=== PATIENT | female | born 2000 | race Caucasian/White ===

== ENCOUNTER 2022-05-12 21:56 | Emergency (ER) | payer MEDICAID, SELFPAY ==
--- NOTE | ~2022-05-12 | XR_ITS ---
EXAMINATION: XR CHEST CLINICAL INFORMATION: Shortness of breath COMPARISON: Chest x-ray 07/28/2017 TECHNIQUE: Frontal view of the chest was obtained. FINDINGS: The lungs are clear. No airspace consolidation, pleural effusion, or pneumothorax. The cardiomediastinal silhouette is within normal limits. No acute osseous injury. XR/XR chest 1V IMPRESSION: No acute pulmonary process.
[2022-05-12 22:00] VITALS: BP 129/78; PULSE 135; RESP 24; TEMP 36.5; O2SAT 100; BMI 51.5
[2022-05-12 23:25] LABS: COVID-19 Test Negative (Negative); IDNOW Serial# 16C4AD1C; Influenza A Negative (Negative); Influenza B2 Negative (Negative)
--- NOTE | 2022-05-13 00:05 | ED.GENADULT ---
HPI - General Adult General Chief complaint: Dyspnea Stated complaint: diff breathing Time Seen by Provider: 05/13/22 00:05 Source: patient Mode of arrival: ambulatory History of Present Illness HPI narrative: Patient is a 22 year old female presenting to the emergency department today with increased SOB. Patient states that over the last few days, she has had increased SOB. Patient states that she does have a history of asthma and this does feel like an exacerbation. Patient denies any dizziness, lightheadedness, abdominal pain, nausea, vomiting, fever, chills, blurry vision, double vision, loss of vision, chest pain, back pain, night sweats, pain with urination, increased urinary frequency, increased urinary urgency, blood in her urine or stool, syncope or a near syncopal episode, recent trauma or falls, bowel incontinence, bladder incontinence, bowel retention, bladder retention, or any other complaints at this time. Onset (ago): day(s) (2) Severity: mild Severity scale (1-10): 3 Relieving factors: none Exacerbating factors: none Associated symptoms: shortness of breath Treatments prior to arrival: none Related Data Previous Rx's Medication Instructions Recorded prednisone 20 mg tablet 20 mg PO DAILY 12 days #26 tabs 05/13/22 Allergies Allergy/AdvReac Type Severity Reaction Status Date / Time shellfish derived Allergy Unknown UNK Unverified 06/16/20 17:01 [SHELLFISH DERIVED] shellfish Allergy Unknown Uncoded 08/12/19 00:00 Review of Systems Constitutional: Constitutional: Reports no additional constitutional complaints, Denies chills, Denies fever(s) and Denies night sweats Eyes: Eyes: Reports no additional eye complaints, Denies blurry vision, Denies change in vision, Denies diplopia, Denies eye discharge, Denies loss of vision and Denies eye pain ENT: Denies dizziness Cardiovascular: Cardiovascular: Reports no additional cardiovascular complaints, Denies chest pain, Denies lightheadedness, Denies Loss of Consciousness and Reports dyspnea Respiratory: Respiratory: Reports no additional respiratory complaints and Reports dyspnea Gastrointestinal: Gastrointestinal: Reports no additional gastrointestinal complaints, Denies abdominal pain, Denies melena, Denies hematochezia, Denies change in bowel habits and Denies change in stool character Genitourinary: Genitourinary: Denies hematuria, Denies urinary frequency, Denies dysuria, Denies urinary incontinence, Denies urinary hesitancy and Denies urinary urgency Musculoskeletal: Musculoskeletal: Reports no additional musculoskeletal complaints, Denies numbness and Denies tingling Neurologic: Denies dizziness, Denies loss of vision, Denies numbness and Denies tingling Psychiatric: Psychiatric: Reports no additional psychiatric complaints Endocrine: Endocrine: Reports no additional endocrine complaints Hematologic/Lymphatic: Hematologic/Lymphatic: Reports no additional hematologic/lymphatic complaints Allergic/Immunologic: Allergic/Immunologic: Reports no additional allergic/immunologic complaints [facility] Past Medical History Attestation statement: The following information was validated with the patient. Source: old records reviewed Social History Social History Advance Directives: No Advance Directives Information Provided: Yes Physical Exam ED Vital Signs: Vital Signs - 24 hr 05/12/22 22:00 05/13/22 01:11 Temperature 97.7 F Pulse Rate 135 H 135 H Respiratory Rate 24 H 16 Blood Pressure 129/78 Pulse Oximetry 100 Oxygen Delivery Method Room Air BMI result Body Mass Index 51.5 Const General: cooperative, no acute distress, alert and awake Nutritional Appearance: well nourished Orientation/consciousness: patient oriented x3 Limitations: no limitations HENMT Head: Yes normal to inspection and Yes atraumatic Ears: hearing grossly normal bilaterally and external ears normal General nose exam: Normal external nose present, no nasal discharge noted and no epistaxis Face and sinus: Yes normal facial exam, No abrasion and No laceration Mouth: Normal oral and palatal mucosa present, no drooling and no muffled voice Eyes General: appearance normal, both eyes and all related structures Periorbital: periorbital findings normal Eyelids: Yes eyelids normal Conjunctivae: conjunctivae normal Pupils: Equal, round and reactive pupils present EOM: EOMs intact bilaterally Neck Neck: Yes normal visual inspection, Yes full ROM and Yes no lymphadenopathy Chest Chest palpation & inspection: normal inspection of the chest Resp Effort & Inspection: normal respiratory effort and able to speak in complete sentences Auscultation: wheezes throughout Cardio Rate: tachycardic Rhythm: regular rhythm GI Inspection: Yes normal to inspection Neuro General: patient oriented x3 and moves all extremities Cranial nerves: Yes Equal, round and reactive pupils present Cognition (Neuro): normal cognition Motor exam (neuro): 5/5 motor strength present throughout Sensory Exam: Normal double simultaneous stimulation for sensation Coordination: [id number] test normal Extrem General: Yes normal to inspection, Yes full ROM and Yes capillary refill normal Psych Appearance: grossly normal Mental Status: mental status grossly normal Affect: normal affect Attitude: cooperative Thought process: Normal thought process present Thought content: Normal thought content present Insight: Good insight present (Psych) Medical Decision Making MDM Narrative Medical decision making narrative: Patient is a 22 year old female presenting to the emergency department today with an asthma exacerbation. Patient's physical exam showed diffuse wheezing and tachycardia but it was otherwise unremarkable. Patient's rapid COVID-19 test was negative. Patient's chest x-ray showed no acute process. Patient is likely tachycardic secondary to her increased albuterol inhaler use at home. I explained my physical exam findings as well as all test results to the patient. I answered all questions asked by the patient. Patient received a duoneb treatment and IM Solu-Medrol which she stated helped her symptoms significantly. I stressed the importance of the patient taking her medication as prescribed. I stressed the importance of the patient following up with her primary care provider. I stressed the importance of the patient returning to the emergency department immediately if her symptoms were to worsen or if she were to develop any dizziness, shortness of breath, difficulty breathing, chest pain, blurry vision, loss of vision, nausea, vomiting, abdominal pain, fever, chills, back pain, or any other complaints. Patient verbalized agreement and understanding with this treatment plan and discharge. Differential Diagnosis Differential Diagnosis: asthma exacerbation Medical Records Medical records reviewed: Yes I reviewed the patient's medical records. Lab Data Lab results reviewed: Yes I reviewed the patient's lab results. Labs: Lab Results 05/12/22 05/12/22 Range/Units 23:01 23:01 COVID-19 (JAYJAY) Negative (Negative) COVID-19 Clin Com See Note Influenza Type A (REBECA) Negative (Negative) Influenza Type B (REBECA) Negative (Negative) Influenza A & B Note See Note Imaging Data Chest x-ray: Attestation: I personally reviewed and interpreted this imaging study as follows: My impression: No acute process. Radiologist's impression: EXAMINATION: XR CHEST CLINICAL INFORMATION: Shortness of breath COMPARISON: Chest x-ray 07/28/2017 TECHNIQUE: Frontal view of the chest was obtained. FINDINGS: The lungs are clear. No airspace consolidation, pleural effusion, or pneumothorax. The cardiomediastinal silhouette is within normal limits. No acute osseous injury. XR/XR chest 1V IMPRESSION: No acute pulmonary process. ? Dictated By: Ronny Cleary Signed By: Electronically signed by Ronny?Evin 05/12/22 [id number] Discharge Plan Discharge Clinical Impression: Asthma with exacerbation Patient Disposition: Home, Self-Care Instructions: Asthma (ED) Additional Instructions: Follow up with your primary care provider. Return to the emergency department immediately if your symptoms worsen or if you develop any dizziness, shortness of breath, difficulty breathing, chest pain, blurry vision, loss of vision, nausea, vomiting, abdominal pain, fever, chills, back pain, or any other complaints. Prescriptions: New prednisone 20 mg tablet 20 mg PO DAILY 12 Days Qty: 26 0RF Rx Instructions: Take 3 tablets for 5 days THEN; Take 2 tablets for 4 days THEN; Take 1 tablet for 3 days Referrals: Trang Draper NP [Primary Care Provider] - Print Language: [place]
[2022-05-13] MEDS: Albuterol/Iprat 2.5/0.5MG 3 ML AMPUL.NEB INHALE (01:09)
[2022-05-13 01:11] VITALS: PULSE 135; RESP 16; O2SAT 100
[2022-05-13] MEDS: methylPREDNISolone Sod Succ 125 MG/2 ML VIAL 60 MG IM (01:11)
== END 2022-05-13 02:30 | disposition home or self-care (01) ==
PROVIDERS: Emergency Provider Emergency Medicine; PCP Nurse Practitioner Adult Health
DX: J45.901 Unspecified asthma with (acute) exacerbation (principal); R06.02 Shortness of breath; Z20.822 Contact with and (suspected) exposure to COVID-19
CPT/HCPCS: 71045; 87502; 87635; 94640; 96372; 99283; 99284; J2930

== ENCOUNTER 2022-10-05 11:23 | Emergency (ER) | payer OTHER, SELFPAY ==
--- NOTE | ~2022-10-05 | US_ITS ---
EXAMINATION: ULTRASOUND OF THE PELVIS CLINICAL INFORMATION: Vaginal bleeding. COMPARISON: None. TECHNIQUE: Transabdominal pelvic ultrasound. FINDINGS: The uterus is normal in size and appearance, measuring 5.9 x 3 x 4.1 cm longitudinally, anteroposteriorly and transversely. The endometrial stripe thickness is normal, measuring 0.9 cm in thickness. No focal myometrial mass is seen. The ovaries bilaterally are visualized and appear normal, with the right ovary measuring 2.8 x 2 x 1.9 cm and the left ovary measuring 2 x 1.4 x 1.1 cm. No adnexal mass or free fluid collection seen. US/US pelvic and transvaginal IMPRESSION: Normal pelvic ultrasound.
[2022-10-05 11:29] VITALS: BP 109/103; PULSE 115; RESP 20; TEMP 36.1; O2SAT 98; BMI 47.1
--- NOTE | 2022-10-05 11:29 | ED_ITS ---
HPI - Female Genitourinary General Chief complaint: Vaginal Bleeding Stated complaint: heavy vaginal bleeding Time Seen by Provider: 10/05/22 12:04 Related Data Previous Rx's Medication Instructions Recorded medroxyprogesterone 10 mg tablet 10 mg PO DAILY #30 tabs 10/05/22 (Provera) Allergies Allergy/AdvReac Type Severity Reaction Status Date / Time shellfish derived Allergy Unknown UNK Verified 10/08/22 11:08 [SHELLFISH DERIVED] walnut Allergy Itching Verified 10/08/22 11:08 peanut AdvReac Itching Verified 10/08/22 11:08 shellfish Allergy Unknown Unknown Uncoded 10/05/22 13:26 PMFSH Past Medical History Medical History Asthma Jose Luis's thyroiditis Surgical History Hx of tonsillectomy Social History Social History Patient Tobacco Use Status: Never used Tobacco Physical Exam Vital Signs: Vital Signs: Last Vital Signs Temp 96.9 F 10/05/22 11:29 Pulse 97 10/05/22 14:25 Resp 16 10/05/22 14:25 BP 122/63 10/05/22 14:25 Pulse Ox 99 10/05/22 14:25 O2 Del Method 10/05/22 14:25 BMI result Body Mass Index 47.1 Course Course Course Narrative: This is an RME: Additional HPI, ROS, PE not included below will be deferred to primary provider. Reports menstrual bleeding for 3 months constantly, 1 week ago she went to urgent care where she was given a prescription for oral contraceptive. Her bleeding did subside for 2 days after she began taking it, However, after 3 days she developed nausea and leg pain, stop taking the contraceptive, and the bleeding returned. States she is using overnight pads changing them every hour. Reports that this is abnormal for her, in the past she has always had issues with not having her menstrual period for prolonged periods. Reports associated suprapubic cramping, dizziness, lightheadedness. Denies nausea, vomiting, back pain, flank pain, dysuria. She states that she spoke to a nurse at [facility], who advised her to come to the emergency department due to her bleeding. She has not yet been seen by a men's basketball coach provider, as she has been unable to make a new patient appointment. Plan: Labs, urinalysis, hcg Medications Administered Discontinued Medications Generic Name Dose Route Start Last Admin Trade Name Freq PRN Reason Stop Dose Admin Sodium Chloride 1,000 mls @ 999 mls/hr 10/05/22 12:15 10/05/22 14:48 Ns IVCONT 10/05/22 13:15 Infused .Q1H1M KWAME Infusion Medical Decision Making Lab Data 10/05/22 12:14 10/05/22 12:14 Labs: Lab Results 10/05/22 10/05/22 10/05/22 Range/Units 12:14 12:14 12:14 WBC 9.9 (4.8-10.8) X10*3/uL RBC 4.97 (4.20-5.50) X10*6/uL Hgb 11.6 L (12.0-16.0) g/dl Hct 37.6 (37.0-47.0) % MCV 75.7 L (80.0-98.0) fL MCH 23.3 L (27.0-33.0) pg MCHC 30.9 L (31.0-35.0) g/dl RDW 14.1 (11.0-16.0) % Plt Count 300 (160-400) X10*3/uL MPV 12.9 H (9.4-12.3) fL Immature Gran % (Auto) 0.3 (0.0-0.4) % Neut % (Auto) 69.9 (45-73) % Lymph % (Auto) 20.5 (20-40) % [place] % (Auto) 7.7 (2-11) % Eos % (Auto) 1.1 (0-4) % Baso % (Auto) 0.5 (0-2) % Lymph # (Auto) 2.0 (1.2-4.9) X10*3/uL [place] # (Auto) 0.8 (0.1-1.2) X10*3/uL Eos # (Auto) 0.1 (0.0-0.4) X10*3/uL Baso # (Auto) 0.1 (0.0-0.2) X10*3/uL Abs Immat Gran (auto) 0.03 (0.00-0.03) X10*3/uL Absolute Neuts (auto) 6.9 (2.0-8.3) x10*3/uL Absolute Nucleated RBC 0.000 (0.0-0.012) X10*3/uL Nucleated RBC % (auto) 0.0 (0.0-0.2) /100WBC Sodium 142 (135-145) mmol/L Potassium 4.1 (3.3-5.1) mmol/L Chloride 108 (96-108) mmol/L Carbon Dioxide 25 (22-29) mmol/L Anion Gap 13 (12-20) BUN 13 (9-16) mg/dL Creatinine 0.79 (0.5-1.4) mg/dL Estim Creat Clear Calc 158.7 Estimated GFR > 60 Random Glucose 105 (60-115) mg/dL Calcium 9.9 (8.4-10.2) mg/dL Total Bilirubin 0.5 (0.0-1.0) mg/dL AST 16 (5-31) U/L ALT 24 (0-31) U/L Alkaline Phosphatase 87 (39-117) U/L Total Protein 7.6 (6.5-8.0) g/dL Albumin 4.2 (3.5-5.0) g/dL Beta HCG, Quant < 2 Cancelled mIU/mL Urine Color Urine Appearance Urine pH (5.0-9.0) Ur Specific [place] (1.005-1.025) Urine Protein (Neg-Trace) mg/dL Urine Glucose (UA) (Negative) mg/dL Urine Ketones (Negative) mg/dL Urine Blood (Negative) Urine Nitrite (Negative) Ur Leukocyte Esterase (Negative) Urine RBC (0-2) /HPF Urine WBC (0-5) /HPF Ur Squamous Epith Cells (0-2) /HPF Urine Bacteria (None Seen) Hyaline Casts (0-2) /LPF Urine Test (NEGATIVE) Blood Type Antibody Screen 10/05/22 10/05/22 10/05/22 Range/Units 12:15 12:15 12:31 WBC (4.8-10.8) X10*3/uL RBC (4.20-5.50) X10*6/uL Hgb (12.0-16.0) g/dl Hct (37.0-47.0) % MCV (80.0-98.0) fL MCH (27.0-33.0) pg MCHC (31.0-35.0) g/dl RDW (11.0-16.0) % Plt Count (160-400) X10*3/uL MPV (9.4-12.3) fL Immature Gran % (Auto) (0.0-0.4) % Neut % (Auto) (45-73) % Lymph % (Auto) (20-40) % [place] % (Auto) (2-11) % Eos % (Auto) (0-4) % Baso % (Auto) (0-2) % Lymph # (Auto) (1.2-4.9) X10*3/uL [place] # (Auto) (0.1-1.2) X10*3/uL Eos # (Auto) (0.0-0.4) X10*3/uL Baso # (Auto) (0.0-0.2) X10*3/uL Abs Immat Gran (auto) (0.00-0.03) X10*3/uL Absolute Neuts (auto) (2.0-8.3) x10*3/uL Absolute Nucleated RBC (0.0-0.012) X10*3/uL Nucleated RBC % (auto) (0.0-0.2) /100WBC Sodium (135-145) mmol/L Potassium (3.3-5.1) mmol/L Chloride (96-108) mmol/L Carbon Dioxide (22-29) mmol/L Anion Gap (12-20) BUN (9-16) mg/dL Creatinine (0.5-1.4) mg/dL Estim Creat Clear Calc Estimated GFR Random Glucose (60-115) mg/dL Calcium (8.4-10.2) mg/dL Total Bilirubin (0.0-1.0) mg/dL AST (5-31) U/L ALT (0-31) U/L Alkaline Phosphatase (39-117) U/L Total Protein (6.5-8.0) g/dL Albumin (3.5-5.0) g/dL Beta HCG, Quant mIU/mL Urine Color RED Urine Appearance Cloudy Urine pH 6.0 (5.0-9.0) Ur Specific [place] >= 1.030 H (1.005-1.025) Urine Protein 100 (2+) H (Neg-Trace) mg/dL Urine Glucose (UA) Negative (Negative) mg/dL Urine Ketones Negative (Negative) mg/dL Urine Blood Large (3+) H (Negative) Urine Nitrite Negative (Negative) Ur Leukocyte Esterase Negative (Negative) Urine RBC >20 H (0-2) /HPF Urine WBC 0-5 (0-5) /HPF Ur Squamous Epith Cells 0-2 (0-2) /HPF Urine Bacteria None Seen (None Seen) Hyaline Casts 0-2 (0-2) /LPF Urine Test NEGATIVE (NEGATIVE) Blood Type O Positive Antibody Screen NEGATIVE Discharge Plan Discharge Clinical Impression: Vaginal bleeding Patient Disposition: Home, Self-Care Instructions: Dysfunctional Uterine Bleeding (ED) Additional Instructions: dr Elise will see your Saturday or Saturday please call the office Prescriptions: New medroxyprogesterone [Provera] 10 mg tablet 10 mg PO DAILY Qty: 30 0RF Referrals: Blaise Elise MD [Physician] - 3 days Interventions: ED Discharge Assessment Last Done: 10/05/22 14:49 Discharge Date/Time: 10/05/22 14:49
--- NOTE | 2022-10-05 12:09 | ED.FEMALEGU ---
HPI - Female Genitourinary General Chief complaint: Vaginal Bleeding Stated complaint: heavy vaginal bleeding Time Seen by Provider: 10/05/22 12:04 Source: patient Mode of arrival: ambulatory Limitations: no limitations History of Present Illness HPI Narrative: 22 years old of female presented to the ED with a chief complaint of heavy vaginal bleeding ongoing for at least a month she was seen at the urgent care she tried for a couple of day better control pills which she discontinued for side effect. Denies any vomiting any diarrhea any fever any abdominal pain MD elicited complaint: other (vaginal bleeding) Severity: moderate Female Urogenital Radiation: Non-Radiating Quality of pain: cramping Exacerbating factors: none Relieving factors: none Related Data Previous Rx's Medication Instructions Recorded prednisone 20 mg tablet 20 mg PO DAILY 12 days #26 tabs 05/13/22 medroxyprogesterone 10 mg tablet 10 mg PO DAILY #30 tabs 10/05/22 (Provera) Allergies Allergy/AdvReac Type Severity Reaction Status Date / Time shellfish derived Allergy Unknown UNK Unverified 06/16/20 17:01 [SHELLFISH DERIVED] walnut Allergy Itching Verified 10/05/22 13:26 peanut AdvReac Itching Verified 10/05/22 13:26 shellfish Allergy Unknown Unknown Uncoded 10/05/22 13:26 Review of Systems Constitutional: Constitutional: Reports no additional constitutional complaints ENT: Reports system reviewed and no additional complaints, except as documented Cardiovascular: Cardiovascular: Reports no additional cardiovascular complaints Respiratory: Respiratory: Reports no additional respiratory complaints [facility] Past Medical History [facility] Narrative: none Physical Exam Vital Signs: Vital Signs: Last Vital Signs Temp 96.9 F 10/05/22 11:29 Pulse 97 10/05/22 14:25 Resp 16 10/05/22 14:25 BP 122/63 10/05/22 14:25 Pulse Ox 99 10/05/22 14:25 O2 Del Method 10/05/22 14:25 BMI result Body Mass Index 47.1 Const: General: cooperative Nutritional Appearance: average body habitus Orientation/consciousness: patient oriented x3 HEENT: Head: Yes normal to inspection General nose exam: Normal external nose present Face and sinus: Yes normal facial exam Mouth: Normal oral and palatal mucosa present Throat: Yes posterior oropharynx normal Neck: Neck: Yes normal visual inspection and Yes full ROM Chest: Chest palpation & inspection: normal inspection of the chest Resp: Effort & Inspection: normal respiratory effort Cardio: Jugular venous distension: no JVD Rate: regular rate Rhythm: regular rhythm GI: Inspection: Yes normal to inspection Palpation (GI): Soft to palpation, not firm, nontender and no guarding Auscultation: normal bowel sounds : Other: Pelvic exam was done patient has had minimal bleeding General: Yes Bimanual renal exam normal bilaterally External Female Exam: normal external appearance Speculum Exam - Vagina: normal appearance of the vagina Speculum Exam - Cervix: normal appearance of the cervix Neuro: General: patient oriented x3 Course Reevaluation(s) Reevaluation #1: I spoke with the OBGYN(Dr Elise)will see the patient on Saturday he recommended also Provera 10 mg daily 30 tablets Medications Administered Discontinued Medications Generic Name Dose Route Start Last Admin Trade Name Freq PRN Reason Stop Dose Admin Sodium Chloride 1,000 mls @ 999 mls/hr 10/05/22 12:15 10/05/22 14:48 Ns IVCONT 10/05/22 13:15 Infused .Q1H1M KWAME Infusion Medical Decision Making Medical Decision Making [facility] Narrative: Patient presented with heavy vaginal bleeding will do a test check the H&H Differential Diagnosis Differential diagnosis included ectopic dysfunctional uterine bleeding Consult Healthcare Provider Management of the patient was discussed with: Data Warehousing Engineer I discussed the case with due to these are be OBGYN he recommend discharge on p.o. Provera and he will see the patient on Saturday Lab Data [facility] Lab Attestation statement: I reviewed the patient's lab results. 10/05/22 12:14 10/05/22 12:14 Labs: Lab Results 10/05/22 10/05/22 10/05/22 Range/Units 12:14 12:14 12:14 WBC 9.9 (4.8-10.8) X10*3/uL RBC 4.97 (4.20-5.50) X10*6/uL Hgb 11.6 L (12.0-16.0) g/dl Hct 37.6 (37.0-47.0) % MCV 75.7 L (80.0-98.0) fL MCH 23.3 L (27.0-33.0) pg MCHC 30.9 L (31.0-35.0) g/dl RDW 14.1 (11.0-16.0) % Plt Count 300 (160-400) X10*3/uL MPV 12.9 H (9.4-12.3) fL Immature Gran % (Auto) 0.3 (0.0-0.4) % Neut % (Auto) 69.9 (45-73) % Lymph % (Auto) 20.5 (20-40) % [place] % (Auto) 7.7 (2-11) % Eos % (Auto) 1.1 (0-4) % Baso % (Auto) 0.5 (0-2) % Lymph # (Auto) 2.0 (1.2-4.9) X10*3/uL [place] # (Auto) 0.8 (0.1-1.2) X10*3/uL Eos # (Auto) 0.1 (0.0-0.4) X10*3/uL Baso # (Auto) 0.1 (0.0-0.2) X10*3/uL Abs Immat Gran (auto) 0.03 (0.00-0.03) X10*3/uL Absolute Neuts (auto) 6.9 (2.0-8.3) x10*3/uL Absolute Nucleated RBC 0.000 (0.0-0.012) X10*3/uL Nucleated RBC % (auto) 0.0 (0.0-0.2) /100WBC Sodium 142 (135-145) mmol/L Potassium 4.1 (3.3-5.1) mmol/L Chloride 108 (96-108) mmol/L Carbon Dioxide 25 (22-29) mmol/L Anion Gap 13 (12-20) BUN 13 (9-16) mg/dL Creatinine 0.79 (0.5-1.4) mg/dL Estim Creat Clear Calc 158.7 Estimated GFR > 60 Random Glucose 105 (60-115) mg/dL Calcium 9.9 (8.4-10.2) mg/dL Total Bilirubin 0.5 (0.0-1.0) mg/dL AST 16 (5-31) U/L ALT 24 (0-31) U/L Alkaline Phosphatase 87 (39-117) U/L Total Protein 7.6 (6.5-8.0) g/dL Albumin 4.2 (3.5-5.0) g/dL Beta HCG, Quant < 2 Cancelled mIU/mL Urine Color Urine Appearance Urine pH (5.0-9.0) Ur Specific [place] (1.005-1.025) Urine Protein (Neg-Trace) mg/dL Urine Glucose (UA) (Negative) mg/dL Urine Ketones (Negative) mg/dL Urine Blood (Negative) Urine Nitrite (Negative) Ur Leukocyte Esterase (Negative) Urine RBC (0-2) /HPF Urine WBC (0-5) /HPF Ur Squamous Epith Cells (0-2) /HPF Urine Bacteria (None Seen) Hyaline Casts (0-2) /LPF Urine Test (NEGATIVE) Blood Type Antibody Screen 10/05/22 10/05/22 10/05/22 Range/Units 12:15 12:15 12:31 WBC (4.8-10.8) X10*3/uL RBC (4.20-5.50) X10*6/uL Hgb (12.0-16.0) g/dl Hct (37.0-47.0) % MCV (80.0-98.0) fL MCH (27.0-33.0) pg MCHC (31.0-35.0) g/dl RDW (11.0-16.0) % Plt Count (160-400) X10*3/uL MPV (9.4-12.3) fL Immature Gran % (Auto) (0.0-0.4) % Neut % (Auto) (45-73) % Lymph % (Auto) (20-40) % [place] % (Auto) (2-11) % Eos % (Auto) (0-4) % Baso % (Auto) (0-2) % Lymph # (Auto) (1.2-4.9) X10*3/uL [place] # (Auto) (0.1-1.2) X10*3/uL Eos # (Auto) (0.0-0.4) X10*3/uL Baso # (Auto) (0.0-0.2) X10*3/uL Abs Immat Gran (auto) (0.00-0.03) X10*3/uL Absolute Neuts (auto) (2.0-8.3) x10*3/uL Absolute Nucleated RBC (0.0-0.012) X10*3/uL Nucleated RBC % (auto) (0.0-0.2) /100WBC Sodium (135-145) mmol/L Potassium (3.3-5.1) mmol/L Chloride (96-108) mmol/L Carbon Dioxide (22-29) mmol/L Anion Gap (12-20) BUN (9-16) mg/dL Creatinine (0.5-1.4) mg/dL Estim Creat Clear Calc Estimated GFR Random Glucose (60-115) mg/dL Calcium (8.4-10.2) mg/dL Total Bilirubin (0.0-1.0) mg/dL AST (5-31) U/L ALT (0-31) U/L Alkaline Phosphatase (39-117) U/L Total Protein (6.5-8.0) g/dL Albumin (3.5-5.0) g/dL Beta HCG, Quant mIU/mL Urine Color RED Urine Appearance Cloudy Urine pH 6.0 (5.0-9.0) Ur Specific [place] >= 1.030 H (1.005-1.025) Urine Protein 100 (2+) H (Neg-Trace) mg/dL Urine Glucose (UA) Negative (Negative) mg/dL Urine Ketones Negative (Negative) mg/dL Urine Blood Large (3+) H (Negative) Urine Nitrite Negative (Negative) Ur Leukocyte Esterase Negative (Negative) Urine RBC >20 H (0-2) /HPF Urine WBC 0-5 (0-5) /HPF Ur Squamous Epith Cells 0-2 (0-2) /HPF Urine Bacteria None Seen (None Seen) Hyaline Casts 0-2 (0-2) /LPF Urine Test NEGATIVE (NEGATIVE) Blood Type O Positive Antibody Screen NEGATIVE Independent Interpretation I performed an independent interpretation of an: Ultrasound Interpretation: None. TECHNIQUE: Transabdominal pelvic ultrasound. FINDINGS: The uterus is normal in size and appearance, measuring 5.9 x 3 x 4.1 cm longitudinally, anteroposteriorly and transversely. The endometrial stripe thickness is normal, measuring 0.9 cm in thickness. No focal myometrial mass is seen. The ovaries bilaterally are visualized and appear normal, with the right ovary measuring 2.8 x 2 x 1.9 cm and the left ovary measuring 2 x 1.4 x 1.1 cm. No adnexal mass or free fluid collection seen. US/US pelvic and transvaginal IMPRESSION: Normal pelvic ultrasound. ? Dictated By: Bran Stinson MD Signed By: <Electronically signed by Bran Stinson MD in OV> 10/05/22 1335 DD/ 1249 Discharge Plan Discharge Clinical Impression: Vaginal bleeding Patient Disposition: Home, Self-Care Instructions: Dysfunctional Uterine Bleeding (ED) Additional Instructions: dr Elise will see your Saturday or Saturday please call the office Prescriptions: New medroxyprogesterone [Provera] 10 mg tablet 10 mg PO DAILY Qty: 30 0RF No Action prednisone 20 mg tablet 20 mg PO DAILY 12 Days Qty: 26 0RF Rx Instructions: Take 3 tablets for 5 days THEN; Take 2 tablets for 4 days THEN; Take 1 tablet for 3 days Referrals: Blaise Elise MD [Physician] - 3 days Interventions: ED Discharge Assessment Last Done: 10/05/22 14:49 Discharge Date/Time: 10/05/22 14:49
[2022-10-05 12:22] LABS: MANUAL DIFF FLAG NO
[2022-10-05 12:27] LABS: UPreg QC Valid YES; Urine Pregnancy NEGATIVE (NEGATIVE)
[2022-10-05 12:31] LABS: Appearance Urine Cloudy; Glucose Urine UA Negative (Negative); Leukocyte Esterase Urine Negative (Negative); Nitrite Urine Negative (Negative); Specific Gravity - Urine >= 1.030 (1.005-1.025); UMIC TRIGGER UACC YES; Urine Blood Large (3+) (Negative); Urine Ketones Negative (Negative); Urine Protein 100 (2+) mg/dL (Neg-Trace)
[2022-10-05 12:32] LABS: Color Urine RED
[2022-10-05 12:34] LABS: RBC Urine >20 /HPF (0-2)
[2022-10-05 12:36] LABS: Basophils Absolute Auto 0.1 X10*3/uL (0.0-0.2); Basophils Percent Auto 0.5 % (0-2); Eosinophils Absolute Auto 0.1 X10*3/uL (0.0-0.4); Eosinophils Percent Auto 1.1 % (0-4); Hematocrit 37.6 % (37.0-47.0); Hemoglobin 11.6 g/dl (12.0-16.0); Imm Gran Abs Auto 0.03 X10*3/uL (0.00-0.03); Imm Gran Pct Auto 0.3 % (0.0-0.4); Lymphocytes Percent Auto 20.5 % (20-40); Mean Corpuscular HGB Conc 30.9 g/dl (31.0-35.0); Mean Corpuscular Hemoglobin 23.3 pg (27.0-33.0); Mean Corpuscular Volume 75.7 fL (80.0-98.0); Mean Platelet Volume 12.9 fL (9.4-12.3); Monocytes Absolute Auto 0.8 X10*3/uL (0.1-1.2); Monocytes Percent Auto 7.7 % (2-11); Neutrophils Absolute Auto 6.9 x10*3/uL (2.0-8.3); Neutrophils Percent Auto 69.9 % (45-73); Platelet Count 300 X10*3/uL (160-400); Red Blood Count 4.97 X10*6/uL (4.20-5.50); Red Cell Distribution Width 14.1 % (11.0-16.0); White Blood Count 9.9 X10*3/uL (4.8-10.8)
[2022-10-05 12:36] LABS: Squamous Epithelial Cell Urine 0-2 /HPF (0-2); WBC Urine 0-5 /HPF (0-5)
[2022-10-05 12:37] LABS: Bacteria Urine None Seen (None Seen); Hyaline Casts Urine 0-2 /LPF (0-2)
[2022-10-05 12:47] LABS: Alanine Aminotransferase 24 U/L (0-31); Albumin Level 4.2 g/dL (3.5-5.0); Alkaline Phosphatase 87 U/L (39-117); Anion Gap 13 (12-20); Aspartate Amino Transferase 16 U/L (5-31); Bilirubin Total 0.5 mg/dL (0.0-1.0); Blood Urea Nitrogen 13 mg/dL (9-16); Calcium 9.9 mg/dL (8.4-10.2); Carbon Dioxide 25 mmol/L (22-29); Chloride 108 mmol/L (96-108); Creatinine Clr Calc Pharmacy 158.7; Estimated Glomerular Filt Rate > 60; Glucose Random 105 mg/dL (60-115); Potassium 4.1 mmol/L (3.3-5.1); Sodium 142 mmol/L (135-145); Total Protein 7.6 g/dL (6.5-8.0)
--- NOTE | 2022-10-05 12:47 | PC.NURSE ---
patient awake and alert. skin pwd, resp even and non labored. speaking in full, clear sentences. reports pelvic pain and vaginal bleeding x 4 months. attempted control to help symptoms but stopped after 3 days because of side effects. reports feeling lightheaded at times. IV established and labs obtained. patient to ultrasound at this time
[2022-10-05 12:49] LABS: HCG Quantitative < 2 mIU/mL
[2022-10-05] MEDS: 0.9 % Sodium Chloride 1,000 ML 999 ML IVCONT (13:25)
--- NOTE | 2022-10-05 14:05 | P.CONOB_ITS ---
GENERAL MAINTENANCE ENGINEER - CN: HPI Data of Consult Consult date: 10/05/22 Primary Care Provider: Eugenio Leija MD Consult Narrative Narrative: I was consulted on Shivam White is a 22 year old female presenting to the ED complaining of heavy vaginal bleeding over the last month, the patient was prescribed control pills which she discontinued for side effect.? No other complaints. 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 - Review of Systems Review of Systems ROS Unobtainable: All systems reviewed & are unremarkable except as noted in HPI and below Cardiovascular: Denies Palpatations, Loss of consciousness or Chest pain Respiratory: Denies Cough, Wheezing or Shortness of breath Musculoskeletal: Denies Low back pain Gastrointestinal: Denies Heartburn, Constipation, Diarrhea, Nausea or Vomiting Genitourinary: Denies Pain with urination, Burning with urination or Urinary frequency Neurological: Denies Migranes Psychological: Denies Depression OB PMFSH Social History Social History Advance Directives: No Advance Directives Information Provided: Yes Meds Allergies Allergy/AdvReac Type Severity Reaction Status Date / Time shellfish derived Allergy Unknown UNK Unverified 06/16/20 17:01 [SHELLFISH DERIVED] walnut Allergy Itching Verified 10/05/22 13:26 peanut AdvReac Itching Verified 10/05/22 13:26 shellfish Allergy Unknown Unknown Uncoded 10/05/22 13:26 GENERAL MAINTENANCE ENGINEER Physical Exam Vitals Vital signs: Temp Pulse Resp BP Pulse Ox O2 Del Method 96.9 F 115 H 20 109/103 H 98 10/05/22 11:29 10/05/22 11:29 10/05/22 11:29 10/05/22 11:29 10/05/22 11:29 10/05/22 11:29 BMI result Body Mass Index 47.1 Constitutional General Appearance: Healthy appearing, Well-nourished and Well-developed Psychiatric Mood and Affect: active and alert, normal mood and normal affect Skin Appearance: No rashes and No lesions Lungs Respiratory Effort: No intercostal retractions Auscultation: Clear to auscultation Cardiovascular Auscultation: RRR Abdomen Auscultation/Inspection/Palpation: Normal bowel sounds, Soft, Non-distended and No tenderness GENERAL MAINTENANCE ENGINEER - Results Labs 10/05/22 12:14 10/05/22 12:14 Labs: Short CBC 10/05/22 Range/Units 12:14 WBC 9.9 (4.8-10.8) X10*3/uL Hgb 11.6 L (12.0-16.0) g/dl Hct 37.6 (37.0-47.0) % Plt Count 300 (160-400) X10*3/uL BMP 10/05/22 12:14 Sodium 142 Potassium 4.1 Chloride 108 Carbon Dioxide 25 BUN 13 Creatinine 0.79 Calcium 9.9 Liver Function 10/05/22 Range/Units 12:14 Total Bilirubin 0.5 (0.0-1.0) mg/dL AST 16 (5-31) U/L ALT 24 (0-31) U/L Alkaline Phosphatase 87 (39-117) U/L Albumin 4.2 (3.5-5.0) g/dL Urine 10/05/22 10/05/22 Range/Units 12:15 12:15 Urine Color RED Urine Appearance Cloudy Urine pH 6.0 (5.0-9.0) Ur Specific [place] >= 1.030 H (1.005-1.025) Urine Protein 100 (2+) H (Neg-Trace) mg/dL Urine Glucose (UA) Negative (Negative) mg/dL Urine Test NEGATIVE (NEGATIVE) Antibody Screen Antibody Screen NEGATIVE 10/05/22 12:31 Assessment and Plan (1) Abnormal uterine bleeding (AUB): Status: Acute Plan Recommended to Dr. Segovia the following: Start Provera 10 mg p.o. q.d., traction to be given to patient to come back to the emergency room in case of heavy vaginal bleeding, abdominal pain , fever above 100.4 and to schedule an appointment within few days in the office. I spent a total of 20 minutes reviewing the chart, communicating to the emergency room provider and documenting in the medical record Time Spent With Patient Time: Total time managing care of this patient today ____ minutes.
[2022-10-05 14:25] VITALS: BP 122/63; PULSE 97; RESP 16; O2SAT 99
== END 2022-10-05 14:49 | disposition home or self-care (01) ==
PROVIDERS: Nurse Practitioner Family; Emergency Provider Emergency Medicine; PCP Family Medicine
DX: N93.9 Abnormal uterine and vaginal bleeding, unspecified (principal); Z79.899 Other long term (current) drug therapy
CPT/HCPCS: 36415; 76830; 76856; 80053; 81001; 81025; 84702; 85025; 86850; 86900; 86901; 96360; 99284

== ENCOUNTER 2022-10-08 10:53 | Outpatient (REF) | payer OTHER, SELFPAY ==
[2022-10-09 03:02] LABS: CT PCR NOT DETECTED (Not Detect.); NG PCR NOT DETECTED (Not Detect.)
== END 2022-10-08 10:54 | disposition home or self-care (01) ==
LOC: HO.LNP 10:53
PROVIDERS: PCP Family Medicine; Visit Provider Obstetrics & Gynecology
DX: N93.9 Abnormal uterine and vaginal bleeding, unspecified (principal); N84.1 Polyp of cervix uteri; N91.5 Oligomenorrhea, unspecified; Z32.02 Encounter for pregnancy test, result negative
CPT/HCPCS: 0353U; 57500; 81025; 88305; 99212

== ENCOUNTER 2022-10-17 08:19 | Outpatient (REF) | payer OTHER, SELFPAY | END 2022-10-17 08:20 | disposition home or self-care (01) | LOC: HO.LNP 08:19 | PROVIDERS: PCP Family Medicine; Visit Provider Obstetrics & Gynecology | DX: N93.9 Abnormal uterine and vaginal bleeding, unspecified (principal) | CPT/HCPCS: 58100; 88305 ==

== ENCOUNTER 2022-11-05 08:17 | Outpatient (REF) | payer OTHER, SELFPAY ==
[2022-11-05 18:04] LABS: CT PCR NOT DETECTED (Not Detect.); NG PCR NOT DETECTED (Not Detect.)
== END 2022-11-05 08:18 | disposition home or self-care (01) ==
LOC: HO.LNP 08:17
PROVIDERS: PCP Family Medicine; Visit Provider Obstetrics & Gynecology
DX: Z01.419 Encounter for gynecological examination (general) (routine) without abnormal findings (principal); N93.9 Abnormal uterine and vaginal bleeding, unspecified
CPT/HCPCS: 0353U; 99212

== ENCOUNTER 2023-07-08 10:43 | Outpatient (AMB) | payer OTHER, SELFPAY ==
--- NOTE | 2023-07-08 10:50 | MHC.PC.OV ---
Vital Signs 07/08/23 10:51 Height 5 ft 6 in Weight 286 lb 2 oz BMI 46.2 BP 118/66 Blood Pressure Location Lt brachial Position Sitting Respiration 12 Pulse 87 Pulse Source Pulse Oximeter Temp 97.3 F Temp Source Temporal Artery Scan Pulse Oximetry (%) 99 Oxygen Delivery Method Room Air Intake Visit Reasons: CPE President [place] Required: No Accompanied by: Self / Same As Patient Allergies shellfish derived [SHELLFISH DERIVED] Allergy (Unknown, Verified 07/08/23 11:08) UNK walnut Allergy (Verified 07/08/23 11:08) Itching peanut Adverse Reaction (Verified 07/08/23 11:08) Itching shellfish Allergy (Unknown, Uncoded 07/08/23 11:08) Unknown Medication List - Last Reconciled 07/08/23 by Dex Pollard CNP albuterol sulfate 90 mcg/actuation (Ventolin HFA) 2 puffs inhalation Q4-6H PRN albuterol sulfate 90 mcg/actuation (ProAir HFA) 2 puffs inhalation Q4-6H PRN 30 days fluticasone propionate 50 mcg/actuation (Flonase Allergy Relief) 1 spray intranasal Q12H 30 days fluticasone propionate 220 mcg/actuation (Flovent HFA) 1 puff inhalation BID progesterone micronized (Prometrium) 200 mg PO BEDTIME 10 days Tobacco use date assessed: 07/08/23 Dental Screening Dental Screen Date: 07/08/23 Did you have a dental visit in the last 12 months?: No Did you have a dental problem in the last 6 months where you did not have access to dental care?: No Was dental information given to patient?: Yes HPI HPI Comments History of Present Illness Details 23-year-old female presents for a CPE, recent labs review, and health maintenance. She was last evaluated by her PCP on 12/26/2022. The plan was for the patient to return for complete physical exam done, labs reviewed, and health maintenance. Medications would be resumed or dosage would be adjusted as needed. She states that she forgot to get blood work done but would do so today since she has been fasting since last night. She has history of Jose Luis's thyroiditis. She is not currently taking any medication. She had was on levothyroxine 125 mcg daily. She denies acute symptoms. She notes that she had a pap smear test was at [facility] in November,: normal. She states that she is not sexually active and has no concerns for STD. She denies recreational drug use. 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 1. Little interest or pleasure in doing things: not at all 2. Feeling down, depressed, or hopeless: not at all 3. Trouble falling or staying asleep, or sleeping too much: not at all 4. Feeling tired or having little energy: not at all 5. Poor appetite or overeating: not at all 6. Feeling bad about yourself - or that you are a failure or have let yourself or your family down: not at all 7. Trouble concentrating on things, such as reading the newspaper or watching television: several days 8. Moving or speaking so slowly that other people could have noticed. Or the opposite - being so fidgety or restless that you have been moving around a lot more than usual: not at all 9. Thoughts that you would be better off or of hurting yourself in some way: not at all Total score: 1 Depression Screening Interpretation: Negative Depression Screening Done: Yes Source: Developed by Drs. Tab Oliver, Chuyita Pizarro, Roberto Auguste and colleagues, with an educational chris from [employer]. Thrive Questionnaire Date Thrive assessed: 07/08/23 I am a: Patient What is your living situation today?: I have a steady place to live Within the past 12 months, did the food you bought not last and you didn't have the money to get more?: Never true Within the past 12 months, did you worry whether your food would run out before you got money to buy more?: Never true Do you have trouble paying for medicines?: No Do you have trouble getting transportation to medical appointments?: No Do you have trouble paying your heating and electricity bill?: No Do you have trouble taking care of your child, family member or friend?: No Do you have trouble with day-to-day activities such as bathing, preparing meals, shopping, managing finances, etc.?: No Are you currently unemployed and looking for a job?: No Are you interested in more education?: No Please select the resources that you would like help with: None Currently or been in a relationship where the following occur: no concerns reported AUDIT C Alcohol Use Questionnaire (AUDIT-C) 1. How often do you have a drink containing alcohol?: Monthly or less 2. How many drinks containing alcohol do you have on a typical day when you are drinking?: 1 or 2 3. How often do you have six or more drinks on one occasion?: Never Total Score: 1 KEILA-7 AMB Questionnaire KEILA-7 Date KEILA - 7 assessed: 07/08/23 Feeling nervous, anxious, or on edge: 1 = Several days Not being able to stop or control worryin = Not at all Worrying too much about different things: 0 = Not at all Trouble relaxin = Not at all Being so restless that it is hard to sit still: 0 = Not at all Becoming easily annoyed or irritable: 0 = Not at all Feeling afraid as if something awful might happen: 0 = Not at all Total KEILA-7 score (0-4 normal; 5-9 mild; 10-14 moderate; 15-21 severe): 1 Source: Developed by Drs. Tab Oliver, Chuyita Pizarro, Roberto Auguste and colleagues, with an educational chris from [employer]. ACT Questionnaire In the past 4 weeks, how much of the time did your asthma keep you from getting as much done at work, school or at home?: A little of the time During the past 4 weeks, how often have you had shortness of breath?: 1-2 times a week During the past 4 weeks, how often did your asthma symptoms wake you up at night or earlier than usual in the morning?: Not at all During the past 4 weeks, how often have you had to use your rescue inhaler or nebulizer medication?: Once a week or less How would you rate your asthma control during the past 4 weeks?: Somewhat controlled Score: 20 Review of Systems Const Details: Denies chills, Denies fatigue, Denies fever(s), Denies headache(s) and Denies weakness HEENT Denies change in vision, Denies dizziness, Denies headache(s), Denies hearing loss, Denies nasal congestion, Denies sinus pain, Denies sinus pressure and Denies sore throat Card Denies chest pain, Denies lightheadedness, Denies dyspnea and Denies other (palpitations) Resp Denies cough, Denies dyspnea and Denies wheezing GI Denies abdominal pain, Denies melena, Denies hematochezia, Denies change in bowel habits, Denies dyspepsia and Denies nausea Denies hematuria and Denies dysuria Musc Denies abnormal gait, Denies myalgias, Denies arthralgias, Denies numbness and Denies tingling Skin/Breast Denies rash, Denies unusual bruising and Denies wounds Neuro Denies abnormal gait, Denies dizziness, Denies headache(s), Denies memory loss, Denies numbness, Denies Sensory deficit (Neuro), Denies tingling and Denies weakness Psych Denies anxiety, Denies depression and Denies memory loss Endo Denies cold intolerance, Denies fatigue, Denies heat intolerance, Denies polydipsia and Denies polyuria Russell/Lymph Denies easy bleeding and Denies easy bruising Aller/Immun Denies wheezing Physical exam (Primary Care) Vital Signs: Last Vital Signs Temp 97.3 F 07/08/23 10:51 Pulse 87 07/08/23 10:51 Resp 12 07/08/23 10:51 BP 118/66 07/08/23 10:51 Pulse Ox 99 07/08/23 10:51 Oxygen Delivery Method Room Air 07/08/23 10:51 BMI result Body Mass Index 46.2 Tobacco/Smoking Status: Tobacco use Status Tobacco use date assessed 07/08/23 07/08/23 11:03 Patient Tobacco Use Status Never used Tobacco 07/08/23 11:03 e-Cigarette/Vaping Use Never Used 07/08/23 11:03 PHQ-9: PHQ-9 Score PHQ-9: Total score 1 07/08/23 11:11 Depression Screening Interpretation: Negative Thrive Assessment: Date of Thrive Assessment Date Thrive assessed 07/08/23 07/08/23 11:03 Currently or been in a relationship where the following occur: no concerns reported Const Other: General: no acute distress, well developed, alert and awake Nutritional Appearance: well nourished Orientation/consciousness: patient oriented x3 HENMT Head: Yes normocephalic and Yes atraumatic Ears: hearing grossly normal bilaterally and TM's normal bilaterally General nose exam: Normal external nose present and Normal nares present Mouth: Normal oral and palatal mucosa present and moist mucous membranes Teeth and gingiva: dentition normal Throat: Yes oropharynx normal Eyes Pupils: Equal, round and reactive pupils present and Pupil accommodation reflex normal EOM: EOMs intact bilaterally Neck Neck: Yes normal visual inspection, Yes no lymphadenopathy and Yes trachea midline Thyroid: Thyroid normal Carotids: no bruits Lymphatic: no lymphadenopathy noted Chest Chest palpation & inspection: normal inspection of the chest Resp Effort & Inspection: normal respiratory effort Auscultation: clear to auscultation bilaterally Cardio Rate: regular rate Rhythm: regular rhythm Heart sounds: S1 normal heart sound present, S2 normal heart sound present, no gallops, no murmurs and no rubs Bruits: no abdominal aortic bruits and no carotid bruits GI Palpation (GI): No Abdominal aortic bruit present, Soft to palpation, nontender, No hepatosplenomegaly present and No Rebound tenderness present Auscultation: normal bowel sounds General: Yes no CVA tenderness Back/Spine/Pelvis Back: no CVA tenderness Cervical Spine: cervical ROM normal and No Cervical spine tenderness Thoracic/Lumbar Spine: thoraco-lumbar ROM normal, No pain with thoraco-lumbar ROM, No thoracic spinal tenderness and No lumbar spinal tenderness Skin General: warm and dry. Normal skin color. Normal skin turgor Lesions: no lesions Rashes: no rashes Trauma: no lacerations or abrasions Wounds: no wounds Nails: normal Neuro General: patient oriented x3, gait normal and CN's II-XI intact bilaterally Cranial nerves: Yes Equal, round and reactive pupils present Cognition (Neuro): normal cognition Gait exam (Neuro): Normal gait present Motor exam (neuro): 5/5 motor strength present throughout Sensory Exam: No Sensory deficit (Neuro) Deep tendon reflexes (DTR's): Right patellar reflex intensity grade: 2+ and Left patellar reflex intensity grade: 2+ Extrem General: Yes normal to inspection, No edema and No calf tenderness Psych Appearance: grossly normal Affect: normal affect Attitude: cooperative Thought process: Normal thought process present Assessment and Plan Assessment & Plan (1) Normal physical examination, routine: Code(s): Z00.00 - Encounter for general adult medical examination without abnormal findings Plan: No significant physical restrictions or limitations noted Encouraged to get fasting blood work done and schedule a telehealth visit with her PCP for labs review Return with symptoms or concerns Verbalized understanding and agreed with treatment plan. (2) Morbid obesity with BMI of 45.0-49.9, adult: Code(s): E66.01 - Morbid (severe) obesity due to excess calories; Z68.42 - Body mass index [BMI] 45.0-49.9, adult Plan: Her current weight is 286 lb, BMI is 46.2 She notes that last year she exercised routinely, mid healthy diet choices, and lost significant amount of weight. However, this year, she has not been exercise or eating healthy due to being busy with work. She notes she intends to start exercising and eating healthy again. 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 However, she states she will try to lose weight on her own. Routine exercise and healthy diet encouraged. Advised to inform her PCP if she needs a referral for with management. Return with symptoms or concerns. Verbalized understanding and agreed with treatment plan. (3) Asthma: Code(s): J45.909 - Unspecified asthma, uncomplicated Plan: Will control asthma ACT score today is 20 Continue with current treatment regimen Return with symptoms or concerns Verbalized understanding and agreed with treatment plan. Coding Level of Care Code Est Pt Prev Care 18-39y(81015) Diagnoses Normal physical examination, routine Z00.00 Morbid obesity with BMI of 45.0-49.9, adult E66.01; Z68.42 Asthma J45.909
[2023-07-08 10:51] VITALS: BP 118/66; PULSE 87; RESP 12; TEMP 36.3; O2SAT 99; BMI 46.2
== END 2023-07-08 11:28 | disposition home or self-care (01) ==
PROVIDERS: PCP Family Medicine; Visit Provider Nurse Practitioner Family
DX: Z00.00 Encounter for general adult medical examination without abnormal findings (principal); E66.01 Morbid (severe) obesity due to excess calories; Z68.42 Body mass index [BMI] 45.0-49.9, adult; J45.909 Unspecified asthma, uncomplicated
CPT/HCPCS: 99395

== ENCOUNTER 2023-07-08 11:29 | Outpatient (REF) | payer OTHER, SELFPAY | END 2023-07-08 11:30 | disposition home or self-care (01) | LOC: HO.WFDLDS 11:29 | PROVIDERS: Visit Provider Family Medicine | DX: Z00.00 Encounter for general adult medical examination without abnormal findings (principal); E03.9 Hypothyroidism, unspecified; I10 Essential (primary) hypertension; Z20.2 Contact with and (suspected) exposure to infections with a predominantly sexual mode of transmission | CPT/HCPCS: 0353U; 80053; 80061; 81001; 82043; 82570; 84439; 84443; 84480; 85025; 86704; 86706; 86780; 86803; 87340; 87389 ==

== ENCOUNTER 2023-08-08 16:10 | Outpatient (AMB) | payer OTHER, SELFPAY ==
--- NOTE | 2023-08-08 16:02 | A.OFFPC_ITS ---
Intake Visit Reasons: f/u CPE-labs Intake Note: Patient is waiting for telehealth call and is okay with provider calling earlier than appointment time if needed. Allergies shellfish derived [SHELLFISH DERIVED] Allergy (Unknown, Verified 07/08/23 11:08) UNK walnut Allergy (Verified 07/08/23 11:08) Itching peanut Adverse Reaction (Verified 07/08/23 11:08) Itching shellfish Allergy (Unknown, Uncoded 07/08/23 11:08) Unknown Tobacco use date assessed: 07/08/23 HPI f/u CPE-labs HPI Details 23 y/o female presents to f/u CPE-labs v ia telemedicine. Triglycerides 57. TC 143. LDL 94. HDL low at 38. TSH elevated at 29.26. Free T4 0.69. Hx of flash's thyroiditis. Increased WBC in urine without any bacteria seen. She denies any urinary symptoms. 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 Tab Oliver, Chuyita Pizarro, Roberto Auguste and colleagues, with an educational chris from [employer]. Review of Systems Const Denies chills, Denies fatigue, Denies fever(s), Denies headache(s) and Denies weakness ENT Denies dizziness and Denies headache(s) Card Denies dyspnea Resp Denies cough, Denies dyspnea, Denies wheezing and Denies other (shortness of breath) Musc Denies numbness and Denies tingling Neuro Denies dizziness, Denies headache(s), Denies numbness, Denies tingling and Denies weakness Psych Denies anxiety and Denies depression Endo Denies fatigue Aller/Immun Denies wheezing Physical exam (Primary Care) Tobacco/Smoking Status: Tobacco use Status Tobacco use date assessed 07/08/23 08/08/23 16:04 Patient Tobacco Use Status Never used Tobacco 08/08/23 16:04 e-Cigarette/Vaping Use Never Used 08/08/23 16:04 Thrive Assessment: Date of Thrive Assessment Date Thrive assessed 07/08/23 08/08/23 16:04 Telehealth Telehealth Location of provider rendering services: practice address Location of patient: address on file Patient Identification confirmed using: Name, : Yes Telehealth method: voice only Patient verbally consented to treatment: Yes Patient verbally consented to billing insurance company: Yes Patient informed of any privacy concerns related to visit: Yes Minutes spent on Phone/Video with Pt.: 6 Assessment and Plan Assessment & Plan (1) Hypothyroidism: Code(s): E03.9 - Hypothyroidism, unspecified Plan: TSH?significantly?elevated?and?she?had?been?on?levothyroxine?125?mcg?in?the?past Will?resume?this Will?have?her?recheck?labs?in?about?2?months (2) Flash's thyroiditis: Code(s): E06.3 - Autoimmune thyroiditis Plan: As?above (3) Microcytosis: Code(s): R71.8 - Other abnormality of red blood cells Plan: Likely?secondary?to?low?thyroid?levels We?can?recheck?this?with?her?next?blood?draw (4) Low HDL (under 40): Code(s): E78.6 - Lipoprotein deficiency Plan: Increase?activity Orders: Orders Free T4 (Free Thyroxine) Today E03.9 - Hypothyroidism, unspecified Thyroid Stimulating Hormone Today E03.9 - Hypothyroidism, unspecified Comprehensive [place]. Panel Fast Today E03.9 - Hypothyroidism, unspecified, Z00.00 - Encounter for general adult medical examination without abnormal findings Triiodothyronine T3 Total Today E03.9 - Hypothyroidism, unspecified Lipid Panel Today E78.6 - Lipoprotein deficiency, Z00.00 - Encounter for general adult medical examination without abnormal findings Complete Blood Count Auto Diff Today R71.8 - Other abnormality of red blood cells, Z00.00 - Encounter for general adult medical examination without abnormal findings Medications: New levothyroxine 125 mcg PO DAILY 30 tabs 2RF 30 days Refilled progesterone micronized (Prometrium) Take the pill 1 tablet a day cyclically every month from day 15-24 day 1 being the 1st day of next menstrual cycle 200 mg PO BEDTIME 10 days 30 caps 0RF Coding Level of Care Code Tele Est Pt Level 2 (55608) Diagnoses Hypothyroidism E03.9 Flash's thyroiditis E06.3 Microcytosis R71.8 Low HDL (under 40) E78.6
== END 2023-08-08 16:45 ==
PROVIDERS: PCP Family Medicine; Visit Provider Family Medicine
DX: E03.9 Hypothyroidism, unspecified (principal); E06.3 Autoimmune thyroiditis; R71.8 Other abnormality of red blood cells; E78.6 Lipoprotein deficiency
CPT/HCPCS: 99212

== ENCOUNTER 2023-12-24 15:56 | Outpatient (REF) | payer OTHER, SELFPAY ==
[2023-12-24 17:39] LABS: Monocytes Absolute Auto 0.8 X10*3/uL (0.1-1.2); SCAN SMEAR FLAG 1
[2023-12-24 17:40] LABS: Basophils Absolute Auto 0.1 X10*3/uL (0.0-0.2); Basophils Percent Auto 0.5 % (0-2); Eosinophils Absolute Auto 0.1 X10*3/uL (0.0-0.4); Hematocrit 41.5 % (37.0-47.0); Hemoglobin 12.7 g/dl (12.0-16.0); Imm Gran Abs Auto 0.04 X10*3/uL (0.00-0.03); Imm Gran Pct Auto 0.3 % (0.0-0.4); Lymphocytes Absolute Auto 2.7 X10*3/uL (1.2-4.9); Lymphocytes Percent Auto 21.2 % (20-40); MANUAL DIFF FLAG SCAN; Mean Corpuscular HGB Conc 30.6 g/dl (31.0-35.0); Mean Corpuscular Hemoglobin 24.6 pg (27.0-33.0); Mean Corpuscular Volume 80.4 fL (80.0-98.0); Mean Platelet Volume 13.7 fL (9.4-12.3); Monocytes Percent Auto 6.7 % (2-11); Neutrophils Absolute Auto 8.8 x10*3/uL (2.0-8.3); Neutrophils Percent Auto 70.3 % (45-73); Platelet Count 286 X10*3/uL (160-400); Red Blood Count 5.16 X10*6/uL (4.20-5.50); Red Cell Distribution Width 13.9 % (11.0-16.0); White Blood Count 12.6 X10*3/uL (4.8-10.8)
[2023-12-24 17:44] LABS: PLT ABN DIST 1
[2023-12-24 17:54] LABS: Alanine Aminotransferase 19 U/L (0-31); Albumin Level 4.2 g/dL (3.5-5.0); Alkaline Phosphatase 98 U/L (39-117); Anion Gap 13 (12-20); Aspartate Amino Transferase 16 U/L (5-31); Bilirubin Total 0.3 mg/dL (0.0-1.0); Blood Urea Nitrogen 12 mg/dL (9-16); Calcium 9.1 mg/dL (8.4-10.2); Carbon Dioxide 25 mmol/L (22-29); Chloride 105 mmol/L (96-108); Cholesterol 133 mg/dL (<200); Estimated Glomerular Filt Rate > 60; Glucose Fasting 103 mg/dL (60-99); HDL Cholesterol 34 mg/dL (>40); LDL Cholesterol Calculated 84 mg/dL (<100); Potassium 3.8 mmol/L (3.3-5.1); Sodium 139 mmol/L (135-145); Total Protein 7.7 g/dL (6.5-8.0); Triglycerides 75 mg/dL (<150)
[2023-12-24 17:57] LABS: SLIDE REVIEW VERIFIED
[2023-12-24 18:09] LABS: Free T4 (Free Thyroxine) 1.23 ng/dL (0.71-1.85); Thyroid Stimulating Hormone 2.02 uIU/mL (0.32-4.0)
[2023-12-25 18:34] LABS: Triiodothyronine T3 Total 121 ng/dL (76-181)
== END 2023-12-24 15:57 | disposition home or self-care (01) ==
LOC: HO.LAB 15:56
PROVIDERS: PCP Family Medicine; Visit Provider Family Medicine
DX: Z00.00 Encounter for general adult medical examination without abnormal findings (principal); E03.9 Hypothyroidism, unspecified; E78.6 Lipoprotein deficiency; R71.8 Other abnormality of red blood cells
CPT/HCPCS: 36415; 80053; 80061; 84439; 84443; 84480; 85025

== ENCOUNTER 2024-09-29 08:01 | Outpatient (AMB) | payer BC, SELFPAY ==
[2024-09-29 08:10] VITALS: BP 118/72; PULSE 95; O2SAT 98; BMI 45.8
--- NOTE | 2024-09-29 08:10 | A.OFFPC_ITS ---
Vital Signs 09/29/24 08:10 Height 5 ft 6 in Weight 284 lb BMI 45.8 BP 118/72 Blood Pressure Location Rt brachial Position Sitting Pulse 95 Pulse Source Auscultation Pulse Oximetry (%) 98 Oxygen Delivery Method Room Air Intake Visit Reasons: physical exam Opal Polisher Required: No Is last menstrual period known: Yes Last menstrual period: 06/30/24 Post menopausal: No Patient : No Allergies shellfish derived [SHELLFISH DERIVED] Allergy (Unknown, Verified 09/29/24 08:11) UNK walnut Allergy (Verified 09/29/24 08:11) Itching peanut Adverse Reaction (Verified 09/29/24 08:11) Itching shellfish Allergy (Unknown, Uncoded 09/29/24 08:11) Unknown Medication List - Last Reconciled 09/29/24 by Lorenza Fierro, [facility]- albuterol sulfate 90 mcg/actuation (Ventolin HFA) 2 puffs inhalation Q4-6H PRN fluticasone propionate 50 mcg/actuation (Flonase Allergy Relief) 1 spray intranasal Q12H 30 days fluticasone propionate 220 mcg/actuation (Flovent HFA) 1 puff inhalation BID levothyroxine 125 mcg PO DAILY 30 days progesterone micronized (Prometrium) 200 mg PO BEDTIME 10 days Tobacco use date assessed: 09/29/24 Dental Screening Dental Screen Date: 09/29/24 Did you have a dental visit in the last 12 months?: Yes Did you have a dental problem in the last 6 months where you did not have access to dental care?: No Was dental information given to patient?: Patient has dentist HPI HPI Comments History of Present Illness Details 24 y/o F with asthma, hypothyroid, obesi ty, IFG, fatty liver s/p tonsillectomy Family hx: Heart, DM, Thyroid Social: living w/ parents; drives; seatbelt; not exercising; diet is good. 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 Here today for CPE Vision - WNL, no glasses or contacts Hearing WNL Asthma well controlled Cont care w DIVISION FIELD INSPECTOR for AUB Feels well Discussed routine dental care - Usstdny-tcxllmkvjx-[id number] vaccinati on was administered - Declined influenza vaccination for the current season - Depression screening negative - Anxiety screening positive for mild an xiety - Diabetes screening (A1c and blood suga r) recommended due to previous elevated blood sugar levels - Advised on thyroid function monitoring due to hypothyroidism - General wellness guidance provided - Encouraged scheduling an annual physic al in one year Plan Increase levothyroxine to 150 g daily given elevated TSH. Repeat labs in 6 weeks. Telehealth visit to follow. Lifestyle modifications to treat the elevated liver enzymes which are likely related to nonalcoholic fatty liver disease. 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 1. Little interest or pleasure in doing things: not at all 2. Feeling down, depressed, or hopeless: not at all 3. Trouble falling or staying asleep, or sleeping too much: not at all 4. Feeling tired or having little energy: not at all 5. Poor appetite or overeating: not at all 6. Feeling bad about yourself - or that you are a failure or have let yourself or your family down: not at all 7. Trouble concentrating on things, such as reading the newspaper or watching television: not at all 8. Moving or speaking so slowly that other people could have noticed. Or the opposite - being so fidgety or restless that you have been moving around a lot more than usual: not at all 9. Thoughts that you would be better off or of hurting yourself in some way: not at all Total score: 0 Depression Screening Interpretation: Negative Depression Screening Done: Yes 85523 - PHQ-9 Billing: Yes Source: Developed by Drs. Tab Oliver, Chuyita Pizarro, Roberto Auguste and colleagues, with an educational chris from [employer]. Thrive Questionnaire Date Thrive assessed: 09/22/24 I am a: Patient What is your living situation today?: I have a steady place to live Within the past 12 months, did the food you bought not last and you didn't have the money to get more?: Never true Within the past 12 months, did you worry whether your food would run out before you got money to buy more?: Never true Do you have trouble paying for medicines?: No Do you have trouble getting transportation to medical appointments?: No Do you have trouble paying your heating and electricity bill?: No Do you have trouble taking care of your child, family member or friend?: No Do you have trouble with day-to-day activities such as bathing, preparing meals, shopping, managing finances, etc.?: No Are you currently unemployed and looking for a job?: No Are you interested in more education?: No Please select the resources that you would like help with: None Currently or been in a relationship where the following occur: No concerns reported THRIVE Score: 0 AUDIT C Alcohol Use Questionnaire (AUDIT-C) 1. How often do you have a drink containing alcohol?: Monthly or less 2. How many drinks containing alcohol do you have on a typical day when you are drinking?: 1 or 2 3. How often do you have six or more drinks on one occasion?: Less than monthly Total Score: 2 Score Reviewed/Action Taken: Yes KEILA-7 AMB Questionnaire KEILA-7 Date KEILA - 7 assessed: 09/29/24 Feeling nervous, anxious, or on edge: 1 = Several days Not being able to stop or control worryin = Not at all Worrying too much about different things: 1 = Several days Trouble relaxin = Not at all Being so restless that it is hard to sit still: 0 = Not at all Becoming easily annoyed or irritable: 0 = Not at all Feeling afraid as if something awful might happen: 0 = Not at all Total KEILA-7 score (0-4 normal; 5-9 mild; 10-14 moderate; 15-21 severe): 2 Source: Developed by Drs. Tab Oliver, Chuyita Pizarro, Roberto Auguste and colleagues, with an educational chris from [employer]. KEILA-7 Assessment Billing KEILA-7 Assessment Tool: KEILA-7 Assessment 39842 ACT Questionnaire In the past 4 weeks, how much of the time did your asthma keep you from getting as much done at work, school or at home?: None of the time During the past 4 weeks, how often have you had shortness of breath?: Not at all During the past 4 weeks, how often did your asthma symptoms wake you up at night or earlier than usual in the morning?: Not at all During the past 4 weeks, how often have you had to use your rescue inhaler or nebulizer medication?: Not at all How would you rate your asthma control during the past 4 weeks?: Completely controlled ACT Interpretation: Negative Score: 25 Physical exam (Primary Care) Vital Signs: Last Vital Signs Pulse 95 09/29/24 08:10 BP 118/72 09/29/24 08:10 Pulse Ox 98 09/29/24 08:10 Oxygen Delivery Method Room Air 09/29/24 08:10 BMI result Body Mass Index 45.8 BMI Assessment/Plan discussion: High BMI High, discussed plan: lifestyle and physical activity Tobacco/Smoking Status: Tobacco use Status Tobacco use date assessed 09/29/24 09/29/24 08:12 Patient Tobacco Use Status Never used Tobacco 09/29/24 08:12 e-Cigarette/Vaping Use Never Used 09/29/24 08:12 PHQ-9: PHQ-9 Score PHQ-9: Total score 0 09/29/24 09:16 Depression Screening Interpretation: Negative Thrive Assessment: Date of Thrive Assessment Date Thrive assessed 09/22/24 09/29/24 08:12 Currently or been in a relationship where the following occur: No concerns r eported Const Other: General: Cooperative, healthy appearing, comfortable, no acute distress and well developed Orientation: Patient oriented x3 Limitations: No limitations Head: Normal to inspection Ears: Hearing grossly normal bilaterally Nose: Normal external nose present Face and sinus: Normal facial exam Eyes: Appearance normal, both eyes and all related structures Neck: Normal visual inspection and Yes full ROM Respiratory: Normal respiratory effort and able to speak in complete sentences. Clear to auscultation bilaterally Cardiovascular: Regular rate and rhythm. Normal S1 and S2 GI: Normal to inspection. Soft to palpation and nontender Skin: No rashes or lesions noted Neuro: Patient oriented x3 Extremities: Normal to inspection Immunizations Boostrix Tdap 2.5 Lf unit-8 mcg-5 Lf/0.5 mL intramuscular syringe Performing Provider: JEAN-CLAUDE Hinton Performing Location: [facility] Administered by: Dot Redmond RN on 09/29/24 09:12 Dose Route Admin Location Dispensed Lot Number Expiration Date 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 Hypothyroidism type: due to Jose Luis's thyroiditis Mild intermittent asthma without complication J45.20 Asthma complication type: uncomplicated Asthma persistence: intermittent Asthma severity: mild Laboratory exam ordered as part of routine general medical examination Z00.00 Abnormal uterine bleeding (AUB) N93.9 Elevated fasting glucose R73.01 Low HDL (under 40) E78.6 Allergy, sequela T78.40XS Encounter type: sequela Morbid obesity with BMI of 45.0-49.9, adult E66.01; Z68.42 Influenza vaccination declined Z28.21 Need for Tdap vaccination Z23 Fatty liver K76.0 Additional Codes Asthma Control Questionnaire - ACT Interpretation: Negative ([id number]) KEILA-7 Assessment Billing - KEILA-7 Assessment Tool: KEILA-7 Assessment 10933 ([id number]) PHQ-9 - 33868 - PHQ-9 Billing: Yes ([id number]) Assessment & Plan Assessment & Plan (1) Normal physical examination, routine: Code(s): Z00.00 - Encounter for general adult medical examination without abnormal findings Category: Medical (2) Hypothyroidism: Code(s): E03.9 - Hypothyroidism, unspecified Category: Medical Qualifiers: Hypothyroidism type: due to Jose Luis's thyroiditis Qualified Code(s): E06.3 - Autoimmune thyroiditis (3) Asthma: Code(s): J45.909 - Unspecified asthma, uncomplicated Category: Medical Qualifiers: Asthma complication type: uncomplicated Asthma persistence: intermittent Asthma severity: mild Qualified Code(s): J45.20 - Mild intermittent asthma, uncomplicated (4) Laboratory exam ordered as part of routine general medical examination: Code(s): Z00.00 - Encounter for general adult medical examination without abnormal findings Category: Medical (5) Abnormal uterine bleeding (AUB): Code(s): N93.9 - Abnormal uterine and vaginal bleeding, unspecified Category: Medical (6) Elevated fasting glucose: Code(s): R73.01 - Impaired fasting glucose Category: Medical (7) Low HDL (under 40): Code(s): E78.6 - Lipoprotein deficiency Category: Medical (8) Allergies: Code(s): T78.40XA - Allergy, unspecified, initial encounter Category: Medical Qualifiers: Encounter type: sequela Qualified Code(s): T78.40XS - Allergy, unspecified, sequela (9) Morbid obesity with BMI of 45.0-49.9, adult: Code(s): E66.01 - Morbid (severe) obesity due to excess calories; Z68.42 - Body mass index [BMI] 45.0-49.9, adult Category: Medical (10) Influenza vaccination declined: Code(s): Z28.21 - Immunization not carried out because of patient refusal (11) Need for Tdap vaccination: Code(s): Z23 - Encounter for immunization (12) Fatty liver: Code(s): K76.0 - Fatty (change of) liver, not elsewhere classified Category: Medical Plan . Orders: Orders Free T4 (Free Thyroxine) Today E03.9 - Hypothyroidism, unspecified Hemoglobin A1c Today R73.01 - Impaired fasting glucose Microalbumin, Random (w Creat) Today I10 - Essential (primary) hypertension Thyroid Stimulating Hormone Today E03.9 - Hypothyroidism, unspecified Complete Blood Count Auto Diff Today Z00.00 - Encounter for general adult medical examination without abnormal findings Comprehensive [place]. Panel Fast Today Z00.00 - Encounter for general adult medical examination without abnormal findings Lipid Panel Today Z00.00 - Encounter for general adult medical examination without abnormal findings TDaP Immunization Today Z23 - Encounter for immunization Medications: Changed From fluticasone propionate 220 mcg/actuation (Flovent HFA) 1 puff inhalation BID To fluticasone propionate 220 mcg/actuation 1 puff inhalation BID 12 grams 12RF Refilled albuterol sulfate 90 mcg/actuation (Ventolin HFA) 2 puffs inhalation Q4-6H PRN 8.5 grams 6RF shortness of breath or wheezing progesterone micronized (Prometrium) Take the pill 1 tablet a day cyclically every month from day 15-24 day 1 being the 1st day of next menstrual cycle 200 mg PO BEDTIME 30 caps 3RF 10 days fluticasone propionate 50 mcg/actuation (Flonase Allergy Relief) administer into each nostril 1 spray intranasal Q12H 16 grams 12RF 30 days Discontinued levothyroxine Discontinued Reason: Doctor's Order 125 mcg PO DAILY 30 days 30 tabs 2RF Patient Instructions: Health screenings for women You should visit your health care provider from time to time, even if you are healthy. The purpose of these visits is to: Screen for medical issues Assess your risk for future medical problems Encourage a healthy lifestyle Update vaccinations and other preventive care services Help you get to know your provider in case of an illness Information Even if you feel fine, you should still see your provider for regular checkups. These visits can help you avoid problems in the future. For example, the only way to find out if you have high blood pressure is to have it checked regularly. High blood sugar and high cholesterol levels also may not have any symptoms in the early stages. A simple blood test can check for these conditions. There are specific times when you should see your provider or receive specific health screenings. The [place] Preventive Services Task Force publishes a list of recommended screenings. Below are screening guidelines for women ages 18 to 39. BLOOD PRESSURE SCREENING Your blood pressure should be checked at least once every 3 to 5 years if: Your blood pressure is in the normal range (top number less than 120 mm Hg and bottom number less than 80 mm Hg) You don't have risk factors for high blood pressure Ask your provider if you need your blood pressure checked more often if: The top number is 120 to 129 mm Hg or the bottom number is 70 to 79 mm Hg You have diabetes, heart disease, kidney problems, are overweight, or have certain other health conditions You have a first-degree relative with high blood pressure You are Black You had high blood pressure during a If the top number is 130 mm Hg or greater or the bottom number is 80 mm Hg or greater, this is considered stage 1 hypertension. Schedule an appointment with your provider to learn how you can reduce your blood pressure. Watch for blood pressure screenings in your area. Ask your provider if you can stop in to have your blood pressure checked. BREAST CANCER SCREENING Experts do not agree about the benefits of breast self-exams in finding breast cancer or saving lives. Talk to your provider about what is best for you. A screening mammogram is not recommended for most women under age 40. Your provider may discuss and recommend mammograms, MRI scans, or ultrasounds if you have an increased risk for breast cancer, such as: A mother or sister who had breast cancer at a young age (most often starting screening earlier than the age the close relative was diagnosed) You carry a high-risk genetic marker CERVICAL CANCER SCREENING Cervical cancer screening should start at age 21 years unless your provider advises otherwise. After the first test: Women ages 21 through 29 should have a Pap test every 3 years. Exoprts do not agree on whether HPV testing is recommended for this age group. Women ages 30 through 65 should be screened with either a Pap test every 3 years or the HPV test every 5 years or both tests every 5 years (called cotesting ). Women who have been treated for precancer (cervical dysplasia) should continue to have Pap tests for 20 years after treatment or until age 65, whichever is longer. If you have had your uterus and cervix removed (total hysterectomy), and you have not been diagnosed with cervical cancer or precancer (high grade cervical neoplasia), you do not need cervical cancer screening. CHOLESTEROL SCREENING Cholesterol screening should begin at: Age 45 for women with no known risk factors for coronary heart disease Age 20 for women with known risk factors for coronary heart disease Repeat cholesterol screening should take place: Every 5 years for women with normal cholesterol levels More often if changes occur in lifestyle (including weight gain and diet) More often if you have diabetes, heart disease, kidney problems, or certain other conditions DIABETES SCREENING You should be screened for diabetes starting at age 35 and then repeated every 3 years if you have no risk factors for diabetes. Screening may need to start earlier and be repeated more often if you have other risk factors for diabetes, such as: You have a first degree relative with diabetes. You are overweight or have obesity. You have high blood pressure, prediabetes, or a history of heart disease. Screening for diabetes should be done if you are planning to become and you are overweight and have other risk factors such as high blood pressure. DENTAL EXAM Go to the dentist once or twice every year for an exam and cleaning. Your dentist will evaluate if you need more frequent visits. EYE EXAM Have an eye exam every 5 to 10 years before age 40. If you have vision problems, have an eye exam every 2 years or more often if recommended by your provider. You should have an eye exam that includes an examination of your retina (back of your eye) at least every year if you have diabetes. IMMUNIZATIONS Commonly needed vaccines include: Flu shot: get one every year. COVID-19 vaccine: ask your provider what is best for you. Tetanus-diphtheria and acellular pertussis (Tdap) vaccine: have one at or after age 19 as one of your tetanus-diphtheria vaccines if you did not receive it as an adolescent. Tetanus-diphtheria: have a booster (or Tdap) every 10 years. Varicella vaccine: receive 2 doses if you never had chickenpox or the varicella vaccine. Hepatitis B vaccine: receive 2, 3, or 4 doses, depending on your exact circumstances. Measles, mumps, and rubella (MMR) vaccine: receive 1 to 2 doses if you are not already immune to MMR. Your provider can tell you if you are immune. Ask your provider about the human papillomavirus (HPV) vaccine if: You have not received the HPV vaccine in the past You have not completed the full vaccine series (you should catch up on this shot) Ask your provider if you should receive other immunizations if you have certain health problems that increase your risk for some diseases such as pneumonia. INFECTIOUS DISEASE SCREENING Women who are sexually active should be screened for chlamydia and gonorrhea up until age 25. Women 25 years and older should be screened for chlamydia and gonorrhea if at high risk. Screening for hepatitis C: All adults ages 18 to 79 should get a one-time test for hepatitis C. people should be screened at every . Screening for human immunodeficiency virus (HIV): All people ages 15 to 65 should get a one-time test for HIV. Depending on your lifestyle and medical history, you may also need to be screened for infections such as syphilis and HIV, as well as other infections. PHYSICAL EXAM All adults should visit their provider from time to time, even if they are healthy. The purpose of these visits is to: Screen for disease Assess your risk of future medical problems Encourage a healthy lifestyle Update your vaccinations and other preventive care services Maintain a relationship with a provider in case of an illness Your height, weight, and BMI should be checked at every exam. During your exam, your provider may ask you about: Depression and anxiety Diet and exercise Alcohol and tobacco use Safety issues, such as using seat belts, smoke detectors, and intimate partner violence Your medicines and risk for interactions SKIN SELF-EXAM Your provider may check your skin for signs of skin cancer, especially if you're at high risk, such as if you: Have had skin cancer before Have close relatives with skin cancer Have a weakened immune system OTHER SCREENING Talk with your provider about colon cancer screening if you have a strong family history of colon cancer or polyps, or if you have had inflammatory bowel disease or polyps yourself. Routine bone density screening of women under 40 is not recommended.
== END 2024-09-29 08:45 | disposition home or self-care (01) ==
PROVIDERS: PCP Family Medicine; Visit Provider Nurse Practitioner Family
DX: Z00.00 Encounter for general adult medical examination without abnormal findings (principal); E06.3 Autoimmune thyroiditis; E66.01 Morbid (severe) obesity due to excess calories; Z68.42 Body mass index [BMI] 45.0-49.9, adult; J45.20 Mild intermittent asthma, uncomplicated; N93.9 Abnormal uterine and vaginal bleeding, unspecified; R73.01 Impaired fasting glucose; E78.6 Lipoprotein deficiency; T78.40XS Allergy, unspecified, sequela; Z28.21 Immunization not carried out because of patient refusal; Z23 Encounter for immunization; K76.0 Fatty (change of) liver, not elsewhere classified

== ENCOUNTER → 2024-09-29 08:01 | Outpatient (BNVA) | payer BC, SELFPAY | PROVIDERS: PCP Family Medicine; Visit Provider Nurse Practitioner Family | DX: Z00.00 Encounter for general adult medical examination without abnormal findings (principal); Z23 Encounter for immunization; E06.3 Autoimmune thyroiditis; J45.20 Mild intermittent asthma, uncomplicated; N93.9 Abnormal uterine and vaginal bleeding, unspecified; R73.01 Impaired fasting glucose; E78.6 Lipoprotein deficiency; T78.40XA Allergy, unspecified, initial encounter; E66.01 Morbid (severe) obesity due to excess calories; Z68.42 Body mass index [BMI] 45.0-49.9, adult; K76.0 Fatty (change of) liver, not elsewhere classified; Z28.21 Immunization not carried out because of patient refusal | CPT/HCPCS: 90471; 90715; 96127; 96160 ==

== ENCOUNTER 2024-09-29 08:46 | Outpatient (REF) | payer BC, SELFPAY ==
[2024-09-29 11:25] LABS: MANUAL DIFF FLAG NO
[2024-09-29 11:37] LABS: Estimated Average Glucose 108 mg/dL; Hemoglobin A1C 123.2498 umol/L; Hemoglobin A1c % 5.4 % (<6.0); Total Hemoglobin (HGBA1C) 3521.8884 umol/L
[2024-09-29 11:47] LABS: Creatinine Urine 268.72 mg/dL; Microalbum/Creatinine Ratio Ur 5.9 ug/mg cr (<30)
[2024-09-29 12:15] LABS: Alanine Aminotransferase 47 U/L (0-31); Albumin Level 4.2 g/dL (3.5-5.0); Alkaline Phosphatase 99 U/L (39-117); Anion Gap 11 (12-20); Aspartate Amino Transferase 32 U/L (5-31); Bilirubin Total 0.3 mg/dL (0.0-1.0); Blood Urea Nitrogen 15 mg/dL (9-16); Calcium 9.4 mg/dL (8.4-10.2); Carbon Dioxide 25 mmol/L (22-29); Chloride 108 mmol/L (96-108); Cholesterol 172 mg/dL (<200); Estimated Glomerular Filt Rate > 60; Glucose Fasting 99 mg/dL (60-99); HDL Cholesterol 39 mg/dL (>40); LDL Cholesterol Calculated 109 mg/dL (<100); Potassium 3.7 mmol/L (3.3-5.1); Sodium 140 mmol/L (135-145); Triglycerides 120 mg/dL (<150)
[2024-09-29 12:20] LABS: Free T4 (Free Thyroxine) 1.32 ng/dL (0.71-1.85)
[2024-09-29 12:34] LABS: Basophils Absolute Auto 0.1 X10*3/uL (0.0-0.2); Basophils Percent Auto 0.6 % (0-2); Eosinophils Absolute Auto 0.1 X10*3/uL (0.0-0.4); Eosinophils Percent Auto 1.2 % (0-4); Hematocrit 42.8 % (37.0-47.0); Hemoglobin 13.6 g/dl (12.0-16.0); Imm Gran Abs Auto 0.03 X10*3/uL (0.00-0.03); Imm Gran Pct Auto 0.3 % (0.0-0.4); Lymphocytes Absolute Auto 2.3 X10*3/uL (1.2-4.9); Lymphocytes Percent Auto 21.6 % (20-40); Mean Corpuscular HGB Conc 31.8 g/dl (31.0-35.0); Mean Corpuscular Volume 81.8 fL (80.0-98.0); Mean Platelet Volume 13.5 fL (9.4-12.3); Monocytes Absolute Auto 0.8 X10*3/uL (0.1-1.2); Monocytes Percent Auto 7.4 % (2-11); Neutrophils Absolute Auto 7.2 x10*3/uL (2.0-8.3); Neutrophils Percent Auto 68.9 % (45-73); Platelet Count 254 X10*3/uL (160-400); Red Blood Count 5.23 X10*6/uL (4.20-5.50); Red Cell Distribution Width 13.7 % (11.0-16.0); White Blood Count 10.4 X10*3/uL (4.8-10.8)
== END 2024-09-29 08:47 | disposition home or self-care (01) ==
LOC: HO.WFDLDS 08:46
PROVIDERS: Visit Provider Nurse Practitioner Family
DX: Z00.00 Encounter for general adult medical examination without abnormal findings (principal); E03.9 Hypothyroidism, unspecified; R73.01 Impaired fasting glucose; I10 Essential (primary) hypertension
CPT/HCPCS: 36415; 80053; 80061; 82043; 82570; 83036; 84439; 84443; 85025

== ENCOUNTER 2024-11-04 08:31 | Outpatient (REF) | payer BC, SELFPAY ==
[2024-11-04 09:58] LABS: TSH reflex Free T4 3.27 uIU/mL (0.32-4.0)
== END 2024-11-04 08:32 | disposition home or self-care (01) ==
LOC: HO.LAB 08:31
PROVIDERS: PCP Family Medicine; Visit Provider Nurse Practitioner Family
DX: E06.3 Autoimmune thyroiditis (principal)
CPT/HCPCS: 36415; 84443

== ENCOUNTER 2024-11-06 15:29 | Outpatient (AMB) | payer BC, SELFPAY ==
--- NOTE | 2024-11-06 16:36 | A.OFFPC_ITS ---
Intake Visit Reasons: FU thyroid labs/dosing Allergies shellfish derived [SHELLFISH DERIVED] Allergy (Unknown, Verified 09/29/24 08:11) UNK walnut Allergy (Verified 09/29/24 08:11) Itching peanut Adverse Reaction (Verified 09/29/24 08:11) Itching shellfish Allergy (Unknown, Uncoded 09/29/24 08:11) Unknown Medication List - Last Reconciled 11/06/24 by Lorenza Fierro, [facility] albuterol sulfate 90 mcg/actuation (Ventolin HFA) 2 puffs inhalation Q4-6H PRN fluticasone propionate 220 mcg/actuation 1 puff inhalation BID fluticasone propionate 50 mcg/actuation (Flonase Allergy Relief) 1 spray intranasal Q12H 30 days levothyroxine 150 mcg PO DAILY progesterone micronized (Prometrium) 200 mg PO BEDTIME 10 days Tobacco use date assessed: 11/06/24 Dental Screening Dental Screen Date: 11/06/24 Did you have a dental visit in the last 12 months?: Yes Did you have a dental problem in the last 6 months where you did not have access to dental care?: No Was dental information given to patient?: Patient has dentist HPI HPI Comments History of Present Illness Details Tele video visit via [employer] The patient is a 24-year-old female presenting with concerns regarding her hypothyroidism management and recent acute viral pharyngitis complicated by adenoid hypertrophy. She has a history of hypothyroidism for which her levothyroxine dosage was recently increased to 150 mcg, leading to normalization of her TSH levels from a previous level of 5.90 to a current level of 3.27. The patient reports stable thyroid-related symptoms with no significant changes in energy levels, sleep patterns, or mood post-adjustment. Recently, over the past weekend, the patient experienced neck pain and swelling with symptoms resembling those of a cold. The progression led her to seek care at an urgent care facility and subsequently at the emergency room after being suggested to obtain a CT scan. Despite negative COVID-19 and strep tests alongside a steroid IV administered in the emergency room, the symptoms recurred. Antibiotic treatment initiated by the urgent care was delayed but resulted in the reduction of swelling once commenced. The patient reports feeling better after the course of antibiotics, albeit concerned about the possibility of adenoid hypertrophy and whether any tonsillar or adenoid abscesses were overlooked during prior evaluations. 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 We reviewed her recent symptoms suggestive of acute viral pharyngitis with adenoid hypertrophy, considering possible etiologies and treatments. I advised completing the prescribed antibiotics and discussed introducing oral steroids to manage residual swelling and inflammation. The alternative management plan emphasized reviewing imaging studies from the emergency room, potentially revealing further insights into her adenoid and tonsillar diagnoses. I affirmed the importance of follow-up and monitoring symptoms via the patient portal for additional guidance as needed. I reminded the patient of the option to utilize our walk-in center for timely evaluation if symptoms persist or worsen. Patient Instructions - Complete the course of prescribed anti biotics. - Begin the prescribed oral steroids: on e tablet once a day with food for five days, ideally in the morning. - Use [facility] in [place] for medication pick-up. - Schedule and attend a routine follow-u p appointments as previously discussed. - Message or contact immediately if symp toms worsen or new symptoms arise. Plan The current plan includes sustaining the current levothyroxine 150 mcg dosage as it successfully controls her hypothyroidism, owing to the positive shift in her TSH levels. Addressing her recent acute viral pharyngitis with adenoid hypertrophy, I recommended completing the antibiotic course and prescribed a b rief course of oral steroids to reduce any persistent inflammation. I have initiated a request to obtain ER imaging and records to evaluate the possibility of adenoid or tonsillar abscess which might have been missed during prior assessment. We discussed the utility of continuing communication via the patient portal and updated her about the available walk-in facilities for acute concerns. Follow-up with normal routine care was outlined for September, while additional attention to any atypical or unresolved symptoms should prompt an earlier evaluation. Patient was informed and verbally consented to the use of an ambient scribe for clinic note documentation during this visit. 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 1. Little interest or pleasure in doing things: not at all 2. Feeling down, depressed, or hopeless: not at all 3. Trouble falling or staying asleep, or sleeping too much: not at all 4. Feeling tired or having little energy: not at all 5. Poor appetite or overeating: not at all 6. Feeling bad about yourself - or that you are a failure or have let yourself or your family down: not at all 7. Trouble concentrating on things, such as reading the newspaper or watching television: not at all 8. Moving or speaking so slowly that other people could have noticed. Or the opposite - being so fidgety or restless that you have been moving around a lot more than usual: not at all 9. Thoughts that you would be better off or of hurting yourself in some way: not at all Total score: 0 Depression Screening Interpretation: Negative Depression Screening Done: Yes 45621 - PHQ-9 Billing: Yes Source: Developed by Drs. Tab Oliver, Chuyita Pizarro, Roberto Auguste and colleagues, with an educational chris from [employer]. Thrive Questionnaire Date Thrive assessed: 11/06/24 I am a: Patient What is your living situation today?: I have a steady place to live Within the past 12 months, did the food you bought not last and you didn't have the money to get more?: Never true Within the past 12 months, did you worry whether your food would run out before you got money to buy more?: Never true Do you have trouble paying for medicines?: No Do you have trouble getting transportation to medical appointments?: No Do you have trouble paying your heating and electricity bill?: No Do you have trouble taking care of your child, family member or friend?: No Do you have trouble with day-to-day activities such as bathing, preparing meals, shopping, managing finances, etc.?: No Are you currently unemployed and looking for a job?: No Are you interested in more education?: No Please select the resources that you would like help with: None Currently or been in a relationship where the following occur: No concerns reported THRIVE Score: 0 AUDIT C Alcohol Use Questionnaire (AUDIT-C) 1. How often do you have a drink containing alcohol?: Never 2. How many drinks containing alcohol do you have on a typical day when you are drinking?: 1 or 2 3. How often do you have six or more drinks on one occasion?: Never Total Score: 0 KEILA-7 AMB Questionnaire KEILA-7 Date KEILA - 7 assessed: 11/06/24 Feeling nervous, anxious, or on edge: 0 = Not at all Not being able to stop or control worryin = Not at all Worrying too much about different things: 0 = Not at all Trouble relaxin = Not at all Being so restless that it is hard to sit still: 0 = Not at all Becoming easily annoyed or irritable: 0 = Not at all Feeling afraid as if something awful might happen: 0 = Not at all Total KEILA-7 score (0-4 normal; 5-9 mild; 10-14 moderate; 15-21 severe): 0 Source: Developed by Drs. Tab Oliver, Chuyita Pizarro, Roberto Auguste and colleagues, with an educational chris from [employer]. KEILA-7 Assessment Billing KEILA-7 Assessment Tool: KEILA-7 Assessment 41584 Physical exam (Primary Care) Tobacco/Smoking Status: Tobacco use Status Tobacco use date assessed 09/29/24 09/29/24 08:12 Patient Tobacco Use Status Never used Tobacco 09/29/24 08:12 e-Cigarette/Vaping Use Never Used 09/29/24 08:12 Depression Screening Interpretation: Negative Thrive Assessment: Date of Thrive Assessment Date Thrive assessed 09/22/24 09/29/24 08:12 Currently or been in a relationship where the following occur: No concerns re ported Telehealth Telehealth Telehealth [facility] Location of provider rendering services: practice address Location of patient: address on file Patient Identification confirmed using: Name, : Yes Telehealth method: video Patient verbally consented to treatment: Yes Patient verbally consented to billing insurance company: Yes Patient informed of any privacy concerns related to visit: Yes Minutes spent on Phone/Video with Pt.: 10 Coding Level of Care Code Tele Est Pt Level 3 (79048) Complex EM visit Add On G2211 Diagnoses Hospital discharge follow-up Z09 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 Hypothyroidism type: due to Jose Luis's thyroiditis Additional Codes PHQ-9 - 01167 - PHQ-9 Billing: Yes ([id number]) KEILA-7 Assessment Billing - KEILA-7 Assessment Tool: KEILA-7 Assessment [id number] ([id number]) Assessment & Plan Assessment & Plan (1) Hospital discharge follow-up: Code(s): Z09 - Encounter for follow-up examination after completed treatment for conditions other than malignant neoplasm Category: Medical (2) Hypothyroidism: Code(s): E03.9 - Hypothyroidism, unspecified Category: Medical Qualifiers: Hypothyroidism type: due to Jose Luis's thyroiditis Qualified Code(s): E06.3 - Autoimmune thyroiditis Plan . Medications: New prednisone 20 mg PO DAILY 5 tabs 0RF Refilled levothyroxine 150 mcg PO DAILY 90 tabs 1RF
== END 2024-11-06 17:05 | disposition home or self-care (01) ==
LOC: HO.HMCFM 15:29
PROVIDERS: PCP Family Medicine; Visit Provider Nurse Practitioner Family
DX: E06.3 Autoimmune thyroiditis (principal); Z09 Encounter for follow-up examination after completed treatment for conditions other than malignant neoplasm

== ENCOUNTER → 2024-11-06 15:29 | Outpatient (BNVA) | payer BC, SELFPAY | PROVIDERS: PCP Family Medicine; Visit Provider Nurse Practitioner Family | DX: Z09 Encounter for follow-up examination after completed treatment for conditions other than malignant neoplasm (principal); E06.3 Autoimmune thyroiditis | CPT/HCPCS: 96127 ==

== ENCOUNTER 2025-06-30 12:52 | Outpatient (AMB) | payer BC, SELFPAY ==
--- NOTE | 2025-06-30 13:02 | MHC.PC.OV ---
Vital Signs 06/30/25 13:14 Height 5 ft 6 in Weight 292 lb 6 oz BMI 47.2 BP 122/70 Blood Pressure Location Rt brachial Position Sitting Respiration 12 Pulse 76 Pulse Source Pulse Oximeter Temp 97.1 F Temp Source Oral Pulse Oximetry (%) 98 Oxygen Delivery Method Room Air Intake Visit Reasons: UTI symptoms Intake Note: Patient c/o burning when urinating x 3 days. Seat Cover Cutter Required: No Allergies shellfish derived (SHELLFISH DERIVED) Allergy (Unknown, Verified 06/30/25 13:18) UNK walnut Allergy (Verified 06/30/25 13:18) Itching peanut Adverse Reaction (Verified 06/30/25 13:18) Itching shellfish Allergy (Unknown, Uncoded 06/30/25 13:02) Unknown Medication List - Last Reconciled 06/30/25 by Lorenza Fierro, [facility]- albuterol sulfate 90 mcg/actuation (Ventolin HFA) 2 puffs inhalation Q4-6H PRN fluticasone propionate 220 mcg/actuation 1 puff inhalation BID fluticasone propionate 50 mcg/actuation (Flonase Allergy Relief) 1 spray intranasal Q12H 30 days levothyroxine 150 mcg PO DAILY prednisone 20 mg PO DAILY progesterone micronized (Prometrium) 200 mg PO BEDTIME 10 days Tobacco use date assessed: 06/30/25 Dental Screening Dental Screen Date: 06/30/25 Did you have a dental visit in the last 12 months?: Yes Did you have a dental problem in the last 6 months where you did not have access to dental care?: No Was dental information given to patient?: Patient has dentist HPI HPI Comments History of Present Illness Details 25 y/o F with asthma, hypothyroid, obesity, IFG, fatty liver s/p tonsillectomy Family hx: Heart, DM, Thyroid Social: living w/ parents; drives; seatbelt; not exercising; diet is good. Health Maintenance Flu declined [place] [facility] [place] [employer] Here today w/ urinary complaints Burning 2 nights ; this stopped yesterday Bolt tinged urine This AM upon waking noted blood only when wiping LMP 2 months ago NO chance of No vaginal discharge No STD concerns No fever, chills. + lower abd cramping Normal bowel movements Exam: Awake alert NAD MMM RRR No CVAT Mild suprapubic tenderness Skin PWD Plan: UA blood and protein Send for culture Tx with AB PRN Hydrate well; use pyridium for sx until culture is back Results to be sent to portal All questions answered Declined flu shot RTO as scheduled, sooner as needed Total time spent caring for the patient today was 30 minutes. This includes time spent before the visit reviewing the chart, time spent during the visit, and time spent after the visit on documentation, reviewing laboratory results, diagnostic imaging, medications, performing a medically necessary evaluation, counseling on diagnoses, care coordination, ordering appropriate tests, ordering appropriate medications, review of tests performed by other providers, reporting test results with the patient, communication with other healthcare providers. 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 Sexual orientation: Straight/Heterosexual Gender identity: Female Cognitive needs: No Hearing needs: No Vision needs: No Female Reproductive History Menstrual Age of Menarche: 13 Questionnaire Thrive Questionnaire Date Thrive assessed: 06/29/25 I am a: Patient What is your living situation today?: I have a steady place to live Within the past 12 months, did the food you bought not last and you didn't have the money to get more?: Never true Within the past 12 months, did you worry whether your food would run out before you got money to buy more?: Never true Do you have trouble paying for medicines?: No Do you have trouble getting transportation to medical appointments?: No Do you have trouble paying your heating and electricity bill?: No Do you have trouble taking care of your child, family member or friend?: No Do you have trouble with day-to-day activities such as bathing, preparing meals, shopping, managing finances, etc.?: No Are you currently unemployed and looking for a job?: No Are you interested in more education?: No Please select the resources that you would like help with: None Currently or been in a relationship where the following occur: No concerns reported THRIVE Score: 0 AUDIT C Alcohol Use Questionnaire (AUDIT-C) 1. How often do you have a drink containing alcohol?: Monthly or less Total Score: 1 KEILA-7 AMB Questionnaire KEILA-7 Date KEILA - 7 assessed: 11/06/24 Feeling nervous, anxious, or on edge: 1 = Several days Not being able to stop or control worryin = Several days Worrying too much about different things: 1 = Several days Trouble relaxin = Several days Being so restless that it is hard to sit still: 0 = Not at all Becoming easily annoyed or irritable: 0 = Not at all Feeling afraid as if something awful might happen: 0 = Not at all Total KEILA-7 score (0-4 normal; 5-9 mild; 10-14 moderate; 15-21 severe): 4 Source: Developed by Drs. Tab Oliver, Chuyita Pizarro, Roberto Auguste and colleagues, with an educational chris from [employer]. Physical exam (Primary Care) Vital Signs: Last Vital Signs Temp 97.1 F 06/30/25 13:14 Pulse 76 06/30/25 13:14 Resp 12 06/30/25 13:14 BP 122/70 06/30/25 13:14 Pulse Ox 98 06/30/25 13:14 Oxygen Delivery Method Room Air 06/30/25 13:14 BMI result Body Mass Index 47.2 Tobacco/Smoking Status: Tobacco use Status Tobacco use date assessed 06/30/25 06/30/25 13:04 Patient Tobacco Use Status Never used Tobacco 06/30/25 13:04 e-Cigarette/Vaping Use Never Used 06/30/25 13:04 Thrive Assessment: Date of Thrive Assessment Date Thrive assessed 06/29/25 06/30/25 13:04 Currently or been in a relationship where the following occur: No concerns reported Results AMB Urinalysis, Automated UA Leukoctes 0 Saima/uL Last Edit by Justin Florez MA on 06/30/25 13:25 UA Nitrite Negative Last Edit by Justin Florez MA on 06/30/25 13:25 UA Urobilinogen 3.5 mg/dL Last Edit by Justin Florez MA on 06/30/25 13:25 UA Protein 015 mg/dL Last Edit by Justin Florez MA on 06/30/25 13:25 UA pH 7.0 Last Edit by Justin Florez MA on 06/30/25 13:25 UA Blood 200 Shaw/uL Last Edit by Justin Florez MA on 06/30/25 13:25 UA Specific [place] 1.015 Last Edit by Justin Florez MA on 06/30/25 13:25 UA Ketone Negative Last Edit by Justin Florez MA on 06/30/25 13:25 UA Bilirubin 0 mg/dL Last Edit by Justin Florez MA on 06/30/25 13:25 UA Glucose 0 mg/dL Last Edit by Justin Florez MA on 06/30/25 13:25 Coding Level of Care Code Est Pt Level 4 (51371) Complex EM visit Add On G2211 Diagnoses Dysuria R30.0 Influenza vaccination declined Z28.21 Assessment & Plan Assessment & Plan (1) Dysuria: Code(s): R30.0 - Dysuria Category: Medical (2) Influenza vaccination declined: Code(s): Z28.21 - Immunization not carried out because of patient refusal Category: Medical Plan . Orders: Orders AMB Urinalysis Automated Today Z13.9 - Encounter for screening, unspecified Urine Culture Today R30.0 - Dysuria Medications: New phenazopyridine (Pyridium) 100 mg PO TID PRN 6 tabs 0RF pain 6 doses Discontinued prednisone Discontinued Reason: Patient Completed Course 20 mg PO DAILY 5 tabs 0RF
[2025-06-30 13:14] VITALS: BP 122/70; PULSE 76; RESP 12; TEMP 36.2; O2SAT 98; BMI 47.2
--- OUTSIDE RECORDS SUMMARY | 2025-06-30 14:09 | XMS_ITS | Encounter Summary ---
Author Organization [facility] Address [address] [facility] [address] [place] [address] Phone Care Team Providers Care Educational Technician Name Role Phone Eugenio Leija MD Primary Care Provider Encounter Details Date Type Department Care Team (Late st Contact Info) Description 11/01/2024 Procedure Pass [facility], Ct Scan - [facility] [address] [place] [address] Social History Tobacco Use Types Packs/Day Years Used Date Smoking Tobacco: Never Smokeless Tobacco: Never Alcohol Use Standard Drinks/Week Comments Not Currently 0 (1 standard drink = 0.6 oz pur e alcohol) Child or Family Care Answer Date Record ed Do you have problems with on e of the following making it difficult for you to work, study, or receive health care? No 10/09/2021 Education Answer Date Recorded Are you interested in more education? Not on brian e 10/10/2023 Are you concerned about learning? Not on file 10/10/2023 No 10/10/2023 No 10/10/2023 Food Answer Date Recorded Within the past 6 months we worried whether our food would run out before we got money to buy more. Never True 10/09/2021 Within the past 6 months the food we bought just didn't last and we didn't have enough money to get more. Never True Residential Stability Answer Date Recor ded What is your housing situation today? I have nia sing 10/09/2021 How many times have you moved in the past 12 mon ths? One time 10/09/2021 06 Are you worried that in t he next 2 months, you may not have your own housing to live in? No 10/09/2021 Paying for Meds Answer Date Recorded Do you have trouble paying for medicines? No 10/09/2021 Paying Utility Bills Answer Date Record ed Do you have trouble paying your heating or elect ricity bill? No 10/09/2021 Transportation Answer Date Recorded Has the lack of transportati on kept you from medical appointments or from getting medications? No 10/09/2021 Unemployment Answer Date Recorded Are you currently unemployed or working on a part-time or temporary basis, and looking for work? Yes 10/09/2021 Digital Access Answer Date Recorded No 02/22/2023 No 02/22/2023 Reliable internet access at home? Not on file 02/22/2023 Device with a working camera? Not on file Intimate Partner Violence Answer Date R ecorded Are you denied basic needs s uch as food, clothing, or medical care? No 10/31/2024 In the past 12 months have y ou been in a relationship with a person who hurts, threatens, or tries to control you? No 10/31/2024 Are you denied basic needs s uch as food, clothing, or medical care? No 10/31/2024 In the past 12 months have y ou been in a relationship with a person who hurts, threatens, or tries to control you? No 10/31/2024 Comments Unknown Sex and Gender Information Value Date Recorded Sex Assigned at Female 05/07/2022 2:18 PM EDT Legal Sex Female 10:23 PM EDT Gender Identity Female 05/07/2022 2:18 PM EDT Sexual Orientation Straight 05/07/2022 2: 18 PM EDT documented as of this encounter Plan of Treatment Not on file documented as of this encounter Visit Diagnoses Not on filedocumented in this encounter Additional Health Concerns Assessment Noted Time PHQ-2 Depression Total Score: 1 10/09/19 22 1:54 PM EST documented as of this encounter Care Teams Educational Technician Relationship Specialty Start Date End Date Eugenio Leija MD [address] [place] [address] PCP - General Family Medicine 10/31/24 documented as of this encounter Additional Source Comments The information contained in this document represents components of the legal health record. It is not the complete legal health record.[facility]
--- OUTSIDE RECORDS SUMMARY | 2025-06-30 14:09 | XMS_ITS | Encounter Summary ---
Author Organization [facility] Address [address] [facility] [address] [place] [address] Phone Care Team Providers Care Ethylbenzene Cracking Supervisor Name Role Phone Trang Draper Luna HERNÁNDEZ Primary Care Provider [phone] Eli Benavides DO Unavailable [phone] Unknown, Unknown Primary Care Provider Eugenio Bergman MD Primary Care Provider Encounter Details Date Type Department Care Team (Late st Contact Info) Description 12/18/2021 Transcribe Orders [facility] [address] [place] [address] Elisa Brandon MD [address] [place] [id number] Social History Tobacco Use Types Packs/Day Years [...] Answer Date Recorded Are you interested in help w ith more adult education (for example, completing high school, GED, job training, learning the [place] language, technical skills, or developing parenting skills)? No 10/09/2021 Food Answer Date Recorded Within the past [...] your housing situation today? I have nia bowman 10/09/2021 How many times have you moved [...] basis, and looking for work? Yes 10/09/2021 Comments Unknown Sex and Gender Information Value [...] documented as of this encounter Care Teams Ethylbenzene Cracking Supervisor Relationship Specialty Start Date End Date Trang Draper CNP [address] [facility] [place] [address] PCP - General Family Medicine 06/10/20 08/20/23 Unknown, Unknown, PCP - General 08/21/23 10/30/24 Eugenio Leija MD [address] [place] [id number] PCP - General Family Medicine 10/31/24 Eli Benavides DO [address] [place] [address], [address] [place] [address] [email or web address] Insurance Assigned Provider 04/08/21 documented as of this encounter Additional Source Comments The information contained in this document represents components of the legal health record. It is not the complete legal health record.[facility]
--- OUTSIDE RECORDS SUMMARY | 2025-06-30 14:09 | XMS_ITS | Clinical Summary ---
Author Organization [facility] Address [address] [facility] [address] [place] [phone] Phone Care Team Providers Care [employer] Business [employer] Name Role Phone Eugenio Leija MD Primary Care Provider Allergies Active Allergy Reactions Criticality Noted Date Comments Peanut Hives 05/07/2022 When ingesting Shellfish Containing Products 09/17/2017 Family history of allergy [place] Itching 09/17/2017 cause throat itching Medications fluticasone propionate (FLONASE) 50 mcg/actuation nasal spray 1-2 spray in each nostril 1 Active inhaler spacing device (AEROCHAMBER,MARIA DE JESUS THERITE) Spcr use with inhalers as direcdted 0 Active cholecalciferol (VITAMIN D3) 50,000 unit capsule TAKE 1 CAPSULE BY MOUTH ONCE WEEKLY 2 Active albuterol (PROAIR HFA) 90 mcg/actuation inhalerIndication s:Mild persistent asthma without complication Inhale 2 puffs into the lungs every 4 (four) hours as needed for wheezing. 8 g 2 2 Active levothyroxine (SYNTHROID, LEVOTHROID) 125 MCG tablet Take 1 tablet (125 mcg total) by mouth every morning. 30 tablet 1 2 Active FLOVENT HFA 220 mcg/actuation inhalerIndication s:Mild persistent asthma without complication TAKE 1 PUFF BY MOUTH TWICE A DAY 12 g 3 Active Active Problems Problem Noted Date Diagnosed Date Elevated blood pressure reading 01/29/2022 Assessment & Plan (05/07/2022 2:45 PM EDT): I asked her to message me her home blood pressure reading and to schedule an office visit in 3 months for recheck here. Assessment & Plan (01/29/2022 2:22 PM EDT): Today's BP is in the stage I hypertension range. She is working with me weight management program. If she gets her weight down my hope is that she will not need to be treated for hypertension. Lifestyle changes were discussed. Other insomnia 10/09/2021 Assessment & Plan (10/09/2021 2:39 PM EST): Complicated by grief. Sleep hygiene discussed at length. Migraine without aura and wi thout status migrainosus, not intractable 07/04/2020 Overview (07/18/2020): OCP increased h/a frequency Assessment & Plan (07/04/2020 1:11 PM EDT): Associated w stress during school year. Hasn;t had one since November. Will monitor Hypothyroidism due to Jose Luis's thyroiditis Assessment & Plan (05/07/2022 2:45 PM EDT): Levothyroxine increased to 125 mcg. She will start this dose tomorrow and return to lab in 8 weeks Assessment & Plan (01/29/2022 2:18 PM EDT): She is taking levothyroxine daily for the past 3 months and her TSH is still elevated so we will increase her levothyroxine dose to 112 mcg daily. Recheck it in 8 weeks. Assessment & Plan (10/09/2021 2:38 PM EST): Discussed strategies to help her take her medication consistently Assessment & Plan (02/16/2021 12:38 PM EDT): Stable Assessment & Plan (09/05/2020 11:28 AM EST): Recent TSH WNL. First year on Levothyroxine so will check TSH again in 8 weeks, if that is WNL recheck in 1 year Assessment & Plan (07/18/2020 11:44 AM EDT): Recheck TSH late july Assessment & Plan (07/04/2020 1:09 PM EDT): Restart levothyroxine. Education done. Check TSH today Allergic rhinitis 09/25/2017 Assessment & Plan (07/04/2020 1:08 PM EDT): Restart singulair at 10 mg qhs. Restart claritin which she can buy otc Attention deficit 09/25/2017 Mild persistent asthma without complication 08/31 Assessment & Plan (01/29/2022 2:18 PM EDT): Well-controlled, continue Flovent, albuterol as needed. No longer using Singulair with no noticeable worsening. Assessment & Plan (10/09/2021 2:37 PM EST): Stable Given flu shot and pneumovax. Urged to get COVID vaccine. Dicussed vaccine safety & efficacy. Assessment & Plan (02/16/2021 12:38 PM EDT): Continue flovent Assessment & Plan (07/04/2020 1:09 PM EDT): At this point her asthma is mild & intermittent. Does not require ICS. She will resume allergy tx. If she has increase in asthma sx she will inform me. Assessment & Plan (03/03/2018 8:01 PM EDT): Controlled, continue flovent, singulair, proair. Hearing loss 09/25/2017 Irregular menstrual bleeding 09/25/2017 Overview (02/16/2021): Menses ~ q 3 mos Probable PCOS, also has hypothyroidism & obesity which can cause irregular menses. Not sexually active Assessment & Plan (09/05/2020 11:30 AM EST): If no menses by late September she will use Prometrium to have withdrawal bleed. Assessment & Plan (07/18/2020 11:44 AM EDT): OCP caused more h/as. She is not sexually active. We will use cyclic progestin as needed if she goes > 3 mos w/o menses. She is currently on menses & will track these. Assessment & Plan (07/04/2020 1:12 PM EDT): She will start OCPs for endometrial protection. She prefers 3 month packs so seasonale sent. Class 3 severe obesity due t o excess calories without serious comorbidity with body mass index (BMI) of 50.0 to 59.9 in adult 09/25/2017 Assessment & Plan (05/07/2022 2:46 PM EDT): She is planning bariatric surgery. Working with [facility]. Assessment & Plan (01/29/2022 2:19 PM EDT): She is working with [facility] weight management program. She is hoping to have bariatric surgery. Assessment & Plan (10/09/2021 2:38 PM EST): Dietary changes & exercise discussed She plans to do Keto diet again Assessment & Plan (02/16/2021 12:38 PM EDT): Encouraged her to continue her efforts to lose weight through dietary improvement & exercise. Assessment & Plan (09/05/2020 11:29 AM EST): Congratulated on progress w wt loss.Discussed making exercise a habit. FU 8 weeks Assessment & Plan (07/18/2020 11:45 AM EDT): Reviewed her food diary w her. Counseling done- reduce carbs & animal fats. For lunch & dinner half of plate should be vegetables. Start eating those first. Add a fruit at breakfast. Wt goal next visit 281. FU 6 weeks Assessment & Plan (07/04/2020 1:10 PM EDT): Encouraged continued exercise. Start dietary lig w cell phone pictures. Keep 2-3 days worth of dietary info & bring to next FU. Discussed importance ot keeping thyroid in control. Assessment & Plan (03/03/2018 8:02 PM EDT): Repeat TSH now and follow up with results. Also referred to nutrition, though dietary recall suggests reasonable habits. Immunizations Immunization Administration Dates Next Due DTaP 06/06/2007, 5,2002,12/05,2002 HPV,quadrivalent 03/26/2016,06/13/2015 HPV9 09/25/2017 Hepatitis B 2002,2002,2002 Hib, unspecified formulation 12/07/2004, 2002,2002,06/03 INFLUENZA, SPLIT VIRUS, TRIV ALENT W/ PRESERVATIVE IM 06/17/2017,10/16/2010 IPV 06/06/2007, 3,2002,06/03 Influenza Quadrivalent Prese rvative Free IM 10/09/2021,07/04/2020 Influenza, Unspecified Formulation 07/28/2009, MMR 06/06/2007,2003 Meningococcal MCV4P 03/26/2016 Pneumococcal conjugate PCV13 12/07/2004, 2003,2002,06/03 Pneumococcal polysaccharide PPSV23 10/09/2021 Pneumococcal, Unspecified Formulation ,2003,2002,06/03 Tdap 03/11/2013 Varicella 07/05/2008,2003 Family History Medical History Relation Comments No Known Problems Brother Asthma Father Depression Father Diabetes Father Hypertension Father Hypothyroidism Father Obesity Father s/p bariatric gomez rgery Rheumatoid arthritis Father Diabetes Maternal Grandfather Thyroid disease Maternal Grandfather Diabetes Maternal Grandmother Hypertension Mother Hypothyroidism Mother Migraines Mother Obesity Mother s/p bariatric gomez rgery Migraines Paternal Aunt 1 Polycystic ovary syndrome Paternal Aunt 1 Polycystic ovary syndrome Paternal Aunt 2 Respiratory distress Sister of COV ID-19 06/2021 Relation Status Comments Brother Father Maternal Grandfather Maternal Grandmother Mother Paternal Aunt 1 Paternal Aunt 2 Sister Social History Tobacco Use Types Packs/Day Years [...] Orientation Straight 05/07/2022 2: 18 PM EDT Last Filed Vital Signs Vital Sign Reading Time Taken Comments Blood Pressure 135/83 10/31/2024 9:18 PM EST Pulse 117 10/31/2024 9:18 PM EST Temperature 37.3 C (99.1 F) 10/31/2024 9:18 PM EST Respiratory Rate 24 10/31/2024 9:18 PM EST Oxygen Saturation 99% 10/31/2024 9:18 PM EST Inhaled Oxygen Concentration - - Weight 129.3 kg (285 lb) 10/31/2024 5:30 PM EST Height 167.6 cm (5' 6 ) 10/31/2024 5:30 PM EST Body Mass Index 46 10/31/2024 5:30 PM EST Plan of Treatment Health Maintenance Due Date Last Done Comments MENINGOCOCCAL VACCINES (B) (1 of 2 - Standard) 2018 HEPATITIS C SCREENING 2020 HIV ONE-TIME SCREENING (18-65 YEARS) 2020 DEPRESSION SCREENING 10/09/2022 10/09/2021 Adult Td,Tdap Booster 03/11/2023 03/11/2013 PAP SMEAR 2023 TSH LEVEL 05/03/2023 05/03/2022, 04, 12/18/2021, Additional history exists INFLUENZA VACCINE (#1) 2025 2, 07/04/2020, 06/17/2017, Additional history exists COVID-19 VACCINE (2023- season) 2025 SMOKING Hx and SMOKELESS TOBACCO SCREENING 10/31/2025 10/31/2024 PNEUMOCOCCAL VACCINES (0-49 years) (2 of 2 - PCV20 or PCV21) 2052 10/09/2021, 12/07/2004, 12/07/2004, Additional history exists HIB VACCINES Completed 12/07/2004, 04/0 09/2002, 2002, Additional history exists MENINGOCOCCAL VACCINES (ACWY) Aged Out 03/26/2016 No longer eligible based on patient's age to complete this topic HPV VACCINES Completed 09/25/2017, 03/01, 06/13/2015 HEPATITIS A VACCINES Aged Out No long er eligible based on patient's age to complete this topic Medical Devices Not on file Procedures Procedure Name Priority Date/Time Associated Diagnosis Comments TSH Routine 05/03/2022 12:30 PM EDT Acquired hypothyroidism from Last 3 Months or Most Recently Relevant to Health Maintenance Results * (ABNORMAL) TSH (05/03/2022 12:30 PM EDT) TSH 14.20(H) 0.27 - 4.20 uIU/mL [facility] Blood 05/03/2022 12:3 0 PM EDT 05/03/2022 12:35 PM EDT Trang Draper [facility] BLOOD ORDERABLES Final Result [address] [id number] from Last 3 Months or Most Recently Relevant to Health Maintenance Insurance [address] [place] [address] [facility] Care Teams Evp Business Development Relationship Specialty Start Date End Date Eugenio Leija MD [address] [place] [phone] PCP - General Family Medicine 10/31/24 Additional Source Comments The information contained in this document represents components of the legal health record. It is not the complete legal health record.[facility]
== END 2025-06-30 13:51 | disposition home or self-care (01) ==
LOC: HO.HMCFM 12:53
PROVIDERS: PCP Family Medicine; Visit Provider Nurse Practitioner Family
DX: R30.0 Dysuria (principal); Z28.21 Immunization not carried out because of patient refusal

== ENCOUNTER 2025-06-30 12:52 | Outpatient (REF) | payer BC, SELFPAY | END 2025-06-30 12:53 | disposition home or self-care (01) | LOC: HO.LAB 12:52 | PROVIDERS: PCP Family Medicine; Visit Provider Nurse Practitioner Family | DX: R30.0 Dysuria (principal); Z79.52 Long term (current) use of systemic steroids; Z79.899 Other long term (current) drug therapy; Z79.890 Hormone replacement therapy | CPT/HCPCS: 87086 ==